=== PATIENT | female | born 1945 | race Caucasian/White ===

== ENCOUNTER 2017-03-24 21:00 | Inpatient (IN) | payer MEDICARE, MEDICAID ==
[~2017-03-24 21:00] MED LIST: ALPR.25 PO; ATOR40TA49 PO; ISOS30 PO; METO25 PO
[2017-03-24 21:15] VITALS: RESP 18; O2SAT 99
[2017-03-24] MEDS ORDERED: SODIUM CHLORIDE 0.9% FLUSH 10 ML FLUSH IVF PRN (21:15)
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
[2017-03-24 21:42] LABS: AUTOMATED NEUTROPHIL # 7.3 TH/MM3 (1.8-7.7); BASOPHIL # 0.1 TH/MM3 (0-0.2); BASOPHIL % 0.9 % (0.0-2.0); EOSINOPHIL # 0.2 TH/MM3 (0-0.4); EOSINOPHIL % 1.9 % (0.0-4.0); HEMATOCRIT 30.4 % (35.0-46.0); LYMPH % 23.6 % (9.0-44.0); LYMPHOCYTE # 2.6 TH/MM3 (1.0-4.8); MEAN CELL VOLUME 72.8 FL (80.0-100.0); MEAN CORPUSCULAR HEMOGLOBIN 23.4 PG (27.0-34.0); MEAN CORPUSCULAR HGB CONC 32.2 % (32.0-36.0); MONO % 8.3 % (0.0-8.0); NEUT % 65.3 % (16.0-70.0); PLATELET COUNT 373 TH/MM3 (150-450); RED BLOOD COUNT 4.18 MIL/MM3 (4.00-5.30); RED CELL DISTRIBUTION WIDTH 18.1 % (11.6-17.2); WHITE BLOOD COUNT 11.2 TH/MM3 (4.0-11.0)
[2017-03-24 21:45] LABS: HEMO FLAGS AUTO DIFF
[2017-03-24 22:06] LABS: ANION GAP 11 MEQ/L (5-15); AST (GOT) 38 U/L (15-37); BICARBONATE 24.3 MEQ/L (21.0-32.0); BLOOD UREA NITROGEN 25 MG/DL (7-18); CHLORIDE 102 MEQ/L (98-107); GLOMERULAR FILTRATION RATE 51 ML/MIN (>89); POTASSIUM 3.8 MEQ/L (3.5-5.1); SODIUM (NA) 137 MEQ/L (136-145)
[2017-03-24 22:09] LABS: ALKALINE PHOSPHATASE 164 U/L (45-117); ALT (GPT) 30 U/L (10-53); TOTAL BILIRUBIN ADULT 0.2 MG/DL (0.2-1.0)
[2017-03-24 22:35] LABS: SCAN/DIFF AUTO DIFF CONFIRMED
[2017-03-24 23:01] LABS: AMPHETAMINE, URINE NEG (NEG); BARBITURATES, URINE NEG (NEG); COCAINE, URINE NEG (NEG)
[2017-03-24 23:15] LABS: BACTERIA, URINE RARE /hpf; BLOOD, URINE NEG (NEG); GLUCOSE,URINE NEG (NEG); KETONE, URINE NEG (NEG); NITRITE,URINE NEG (NEG); SQUAMOUS EPITHELIAL CELL URINE <1 /hpf (0-5); URINE COLOR LIGHT-YELLOW (YELLW/STRAW)
[2017-03-24 23:16] LABS: COMMENT (UR) CULT NOT INDICATED; CULTURE IF INDICATED CULT NOT INDICATED
[2017-03-24] MEDS ORDERED: LANTUS2P SQ (23:16)
[2017-03-24] MEDS ORDERED: ISOS10TA3 PO (23:16)
[2017-03-24] MEDS ORDERED: ATOR1TAB18 PO (23:16)
[2017-03-24] MEDS ORDERED: VITA100018 PO (23:16)
[2017-03-24] MEDS ORDERED: LIDO5DIS35 TOPICAL (23:16)
[2017-03-24] MEDS ORDERED: CYCL1TAB29 PO (23:26)
[2017-03-24] MEDS ORDERED: CLON0.1T PO (23:26)
[2017-03-24] MEDS ORDERED: SERO50TA PO (23:26)
[2017-03-24] MEDS ORDERED: TRAM50TA PO (23:26)
[2017-03-24] MEDS ORDERED: MAPA325T PO (23:26)
[2017-03-24] MEDS ORDERED: HUMALOG SQ (23:26)
[2017-03-24] MEDS ORDERED: IBUP800T23 PO (23:26)
[2017-03-24] MEDS ORDERED: NITR1SUB3 SL (23:26)
[2017-03-24] MEDS ORDERED: PANT40TA3 PO (23:26)
[2017-03-24] MEDS ORDERED: ZOLO25TA PO (23:26)
--- NOTE | 2017-03-25 00:12 | RADRPT ---
EXAM DATE/TIME: 03/24/2017 23:59 [facility] COMPARISON: CT BRAIN W/O CONTRAST, May 10, 2016, 17:36. INDICATIONS : Altered mental status. RADIATION DOSE: 33.81 CTDIvol (mGy) MEDICAL HISTORY : Dementia. Chronic obstructive pulmonary disease. Hypertension. SURGICAL HISTORY : None. ENCOUNTER: Initial ACUITY: 1 day PAIN SCALE: 0/10 LOCATION: cranial TECHNIQUE: Multiple contiguous axial images were obtained of the head. Using automated exposure control and adj ustment of the mA and/or kV according to patient size, radiation dose was kept as low as reasonably a chievable to obtain optimal diagnostic quality images. FINDINGS: CEREBRUM: The ventricles are normal for age. No evidence of midline shift, mass lesion, hemorrhage or acute in farction. No extra-axial fluid collections are seen. POSTERIOR FOSSA: The cerebellum and brainstem are intact. The 4th ventricle is midline. The cerebellopontine angle i s unremarkable. EXTRACRANIAL: The visualized portion of the orbits is intact. SKULL: The calvaria is intact. No evidence of skull fracture. CONCLUSION: No acute disease. Juan M Lundy Jr., MD on March 25, 2017 at 0:09 Board Certified Radiologist. This report was verified electronically.
--- NOTE | 2017-03-25 00:52 | PD ---
Physical Exam Narrative Patient was seen by my store administrative assistant and signed out to me. Data Data Last Documented VS Vital Signs Date Time Temp Pulse Resp B/P Pulse Ox O2 Delivery O2 Flow Rate FiO2 03/24/17 21:15 18 99 Room Air Orders Complete Blood Count With Diff (03/24/17 21:13) Comprehensive Metabolic Panel (03/24/17 21:13) Urinalysis - C+S If Indicated (03/24/17 21:13) Oximetry (03/24/17 21:13) Iv Access Insert/Monitor (03/24/17 21:13) Ecg Monitoring (03/24/17 21:13) Psych Screen (03/24/17 21:13) Sodium Chloride 0.9% Flush (Ns Flush) (03/24/17 21:15) Drug Screen, Random Urine (03/24/17 21:13) Ct Brain W/O Iv Contrast(Rout) (03/24/17 ) Cath For Specimen (03/24/17 22:31) Labs Laboratory Tests Test 03/24/17 03/24/17 21:10 22:30 White Blood Count 11.2 TH/MM3 Red Blood Count 4.18 MIL/MM3 Hemoglobin 9.8 GM/DL Hematocrit 30.4 % Mean Corpuscular Volume 72.8 FL Mean Corpuscular Hemoglobin 23.4 PG Mean Corpuscular Hemoglobin 32.2 % Concent Red Cell Distribution Width 18.1 % Platelet Count 373 TH/MM3 Mean Platelet Volume 8.3 FL Neutrophils (%) (Auto) 65.3 % Lymphocytes (%) (Auto) 23.6 % Monocytes (%) (Auto) 8.3 % Eosinophils (%) (Auto) 1.9 % Basophils (%) (Auto) 0.9 % Neutrophils # (Auto) 7.3 TH/MM3 Lymphocytes # (Auto) 2.6 TH/MM3 Monocytes # (Auto) 0.9 TH/MM3 Eosinophils # (Auto) 0.2 TH/MM3 Basophils # (Auto) 0.1 TH/MM3 CBC Comment AUTO DIFF Differential Comment AUTO DIFF CONFIRMED Sodium Level 137 MEQ/L Potassium Level 3.8 MEQ/L Chloride Level 102 MEQ/L Carbon Dioxide Level 24.3 MEQ/L Anion Gap 11 MEQ/L Blood Urea Nitrogen 25 MG/DL Creatinine 1.07 MG/DL Estimat Glomerular Filtration 51 ML/MIN Rate Random Glucose 169 MG/DL Calcium Level 8.7 MG/DL Total Bilirubin 0.2 MG/DL Aspartate Amino Transf 38 U/L (AST/SGOT) Alanine Aminotransferase 30 U/L (ALT/SGPT) Alkaline Phosphatase 164 U/L Total Protein 9.3 GM/DL Albumin 3.4 GM/DL Urine Color LIGHT-YELLOW Urine Turbidity CLEAR Urine pH 6.0 Urine Specific [place] 1.012 Urine Protein 100 mg/dL Urine Glucose (UA) NEG mg/dL Urine Ketones NEG mg/dL Urine Occult Blood NEG Urine Nitrite NEG Urine Bilirubin NEG Urine Urobilinogen LESS THAN 2.0 MG/DL Urine Leukocyte Esterase NEG Urine RBC 1 /hpf Urine WBC 1 /hpf Urine Squamous Epithelial <1 /hpf Cells Urine Amorphous Sediment RARE Urine Bacteria RARE /hpf Microscopic Urinalysis Comment CULT NOT INDICATED Urine Opiates Screen NEG Urine Barbiturates Screen NEG Urine Amphetamines Screen NEG Urine Benzodiazepines Screen NEG Urine Cocaine Screen NEG Urine Cannabinoids Screen NEG MDM Medical Record Reviewed: Yes Supervised Visit with MICHELINE: Yes Interpretation(s) Last Impressions Head CT 03/24/17 0000 Signed Impressions: Service Date/Time: Friday, March 24, 2017 23:59 - CONCLUSION: No acute disease. Juan M Lundy Jr., MD 12:47 AM. CBC WBC 11.2. Hemoglobin 9.8 hematocrit 30.4. BUN 25. Creatinine 1.07. GFR 51. Alkaline phosphatase 164. Urine drug screen negative. UA is negative. Narrative Course 12:51 AM. Patient is medically cleared for psychiatric evaluation and disposition. Yahir Blue MD March 25, 2017 00:52
[2017-03-25 01:00] VITALS: BP 141/66; PULSE 75; RESP 16; O2SAT 100
[2017-03-25 08:00] VITALS: BP 142/76; PULSE 76; RESP 16; O2SAT 97
[2017-03-25 13:10] VITALS: BP 162/90; PULSE 92; RESP 18; O2SAT 97
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
[2017-03-25 16:04] VITALS: BP 190/88; PULSE 88; RESP 16; TEMP 98.6; O2SAT 98
[2017-03-25] MEDS ORDERED: diphenhydrAMINE HCL 50 MG/ML VIAL ONE (17:06)
[2017-03-25] MEDS ORDERED: ZIPRASIDONE MESYLATE 20 MG VIAL IM ONE ×2 (17:06→17:30)
[2017-03-25] MEDS ORDERED: LORazepam 1 MG TAB PO PRN (17:15)
[2017-03-25] MEDS ORDERED: ALUMINUM/MAGNESIUM/SIMETH 30 ML CUP PO PRN (17:15)
[2017-03-25] MEDS ORDERED: MAGNESIUM HYDROXIDE SUSP 30 ML CUP PO PRN (17:15)
[2017-03-25] MEDS ORDERED: LORazepam 2 MG/ML VIAL IM PRN (17:15)
[2017-03-25] MEDS ORDERED: diphenhydrAMINE HCL 50 MG/ML VIAL IM ONE (17:30)
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
[2017-03-25] MEDS ORDERED: ACETAMINOPHEN 500 MG CPLT PO ONE (18:00)
[2017-03-25 18:13] VITALS: BP 129/67; PULSE 101
--- NOTE | 2017-03-25 18:35 | RADRPT ---
EXAM DATE/TIME: 03/25/2017 18:21 [facility] COMPARISON: No previous studies available for comparison. INDICATIONS : Right arm pain, fall today. MEDICAL HISTORY : None. SURGICAL HISTORY : None. ENCOUNTER: Initial ACUITY: 1 day PAIN SCORE: 2/10 LOCATION: Right arm. FINDINGS: Two view examination of the right humerus demonstrates no evidence of fracture or dislocation. Bony mineralization is normal. The soft tissue structures are intact. CONCLUSION: Unremarkable examination of the right humerus. Mayito Parsons MD on March 25, 2017 at 18:33 Board Certified Radiologist. This report was verified electronically.
--- NOTE | 2017-03-25 18:38 | RADRPT ---
EXAM DATE/TIME: 03/25/2017 18:21 [place] COMPARISON: No previous studies available for comparison. INDICATIONS : Right hip pain, fall today. MEDICAL HISTORY : None. SURGICAL HISTORY : None. ENCOUNTER: Initial ACUITY: 1 day PAIN SCORE: 2/10 LOCATION: Right hip. FINDINGS: There is no evidence of fracture or dislocation. There is mild joint space narrowing in subchondral s clerosis. Phleboliths present in the adjacent pelvis. CONCLUSION: No acute bony findings Mayito Parsons MD on March 25, 2017 at 18:35 Board Certified Radiologist. This report was verified electronically.
[2017-03-25 22:16] VITALS: BP 152/70; PULSE 85; RESP 20; TEMP 97; O2SAT 97
[2017-03-25] MEDS: LORazepam 0.5 MG TAB PO PRN (22:17)
[2017-03-25] MEDS: traZODone HCL 50 MG TAB PO PRN (22:17)
[2017-03-26] MEDS: ACETAMINOPHEN 325 MG TAB PO PRN ×2 (04:11→21:06)
[2017-03-26 05:33] VITALS: BP 140/68; PULSE 88; RESP 18; TEMP 97.8
[2017-03-26 06:00] VITALS: BP 140/68; PULSE 88; RESP 18; TEMP 97.8; O2SAT 98
[2017-03-26] MEDS: LORazepam 0.5 MG TAB PO PRN ×3 (08:10→21:05)
[2017-03-26] MEDS: NICOTINE 21 MG/24 HR PATCH T-DERMAL SCH (09:00)
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
[2017-03-26] MEDS ORDERED: PILL SPLITTER OTHER PRN (14:15)
[2017-03-26] MEDS ORDERED: GLUCAGON 1 MG/ML VIAL OTHER PRN (14:15)
[2017-03-26] MEDS ORDERED: DEXTROSE 50% IN WATER 50 ML VIAL(D50) IV PUSH PRN (14:15)
[2017-03-26] MEDS ORDERED: MAGNESIUM HYDROXIDE SUSP 30 ML CUP PO PRN (15:00)
[2017-03-26] MEDS ORDERED: ALUMINUM/MAGNESIUM/SIMETH 30 ML CUP PO PRN (15:00)
[2017-03-26] MEDS: INSULIN ASPART SUPPLEMENTAL SCALE SQ SCH ×2 (16:00→21:00)
[2017-03-26] MEDS: INSULIN DETEMIR 100 UNITS/ML VIAL SQ SCH (21:00)
[2017-03-26] MEDS: ATORVASTATIN 80 MG TAB PO SCH (21:05)
[2017-03-26] MEDS: PANTOPRAZOLE SOD 40 MG DELAYED RELEASE TAB PO SCH (21:06)
[2017-03-26] MEDS: traZODone HCL 50 MG TAB PO PRN (23:57)
[2017-03-27] MEDS: INSULIN ASPART SUPPLEMENTAL SCALE SQ SCH ×4 (06:08→21:00)
[2017-03-27 06:39] VITALS: BP 156/74; PULSE 80; RESP 17; TEMP 98; O2SAT 99
[2017-03-27] MEDS: NICOTINE 21 MG/24 HR PATCH T-DERMAL SCH (09:00)
[2017-03-27] MEDS: CHOLECALCIFEROL (VIT D3) 1000 UNIT TAB PO SCH (09:51)
[2017-03-27] MEDS: ISOSORBIDE MONONITRATE 20 MG TAB PO SCH (09:51)
[2017-03-27 10:57] LABS: ALT (GPT) 28 U/L (10-53); ANION GAP 11 MEQ/L (5-15); AST (GOT) 35 U/L (15-37); BICARBONATE 26.4 MEQ/L (21.0-32.0); BLOOD UREA NITROGEN 34 MG/DL (7-18); CHLORIDE 101 MEQ/L (98-107); GLOMERULAR FILTRATION RATE 53 ML/MIN (>89); POTASSIUM 3.5 MEQ/L (3.5-5.1); SODIUM (NA) 138 MEQ/L (136-145)
[2017-03-27 11:06] LABS: ALKALINE PHOSPHATASE 154 U/L (45-117); HDL CHOLESTEROL 37.8 MG/DL (40.0-60.0); LDL CHOLESTEROL 129 MG/DL (0-99); TOTAL BILIRUBIN ADULT 0.4 MG/DL (0.2-1.0)
[2017-03-27 11:11] LABS: AUTOMATED NEUTROPHIL # 11.2 TH/MM3 (1.8-7.7); BASOPHIL # 0.1 TH/MM3 (0-0.2); BASOPHIL % 0.5 % (0.0-2.0); EOSINOPHIL # 0.2 TH/MM3 (0-0.4); EOSINOPHIL % 1.2 % (0.0-4.0); HEMATOCRIT 33.5 % (35.0-46.0); LYMPH % 14.4 % (9.0-44.0); LYMPHOCYTE # 2.1 TH/MM3 (1.0-4.8); MEAN CELL VOLUME 73.4 FL (80.0-100.0); MEAN CORPUSCULAR HEMOGLOBIN 22.9 PG (27.0-34.0); MEAN CORPUSCULAR HGB CONC 31.2 % (32.0-36.0); NEUT % 76.9 % (16.0-70.0); PLATELET COUNT 371 TH/MM3 (150-450); RED BLOOD COUNT 4.56 MIL/MM3 (4.00-5.30); RED CELL DISTRIBUTION WIDTH 17.8 % (11.6-17.2); WHITE BLOOD COUNT 14.6 TH/MM3 (4.0-11.0)
[2017-03-27 11:12] LABS: HEMO FLAGS AUTO DIFF
[2017-03-27 12:13] LABS: SCAN/DIFF AUTO DIFF CONFIRMED
--- NOTE | 2017-03-27 12:34 | HHI.PYPN ---
Subjective Remarks Patient seen in day room with nurse Birdie patient is markedly confused and disoriented though continues also quite suspicious vigilant and angry though her affect is somewhat softer today than yesterday, compliant medications. Review of Systems Except as stated in HPI: all other systems reviewed are Neg Objective Alert: Yes [place]: Person (vague) Mood: Angry, Oppositional Affect: Labile, Restricted Memory Intact: Comment (poor) Hallucinations: Other (denies) Delusions: Yes Delusion Type: Paranoid Suicidal: Ideation (denies) Homicidal: Ideation (denies) Insight/Judgment Poor Labs Test 03/27/17 03/27/17 09:40 09:46 Sodium Level 138 MEQ/L Potassium Level 3.5 MEQ/L Chloride Level 101 MEQ/L Carbon Dioxide Level 26.4 MEQ/L Anion Gap 11 MEQ/L Blood Urea Nitrogen 34 MG/DL Creatinine 1.03 MG/DL Estimat Glomerular Filtration 53 ML/MIN Rate Random Glucose 120 MG/DL Calcium Level 9.2 MG/DL Total Bilirubin 0.4 MG/DL Aspartate Amino Transf 35 U/L (AST/SGOT) Alanine Aminotransferase 28 U/L (ALT/SGPT) Alkaline Phosphatase 154 U/L Total Protein 9.1 GM/DL Albumin 3.5 GM/DL Triglycerides Level 169 MG/DL Cholesterol Level 201 MG/DL LDL Cholesterol 129 MG/DL HDL Cholesterol 37.8 MG/DL Cholesterol/HDL Ratio 5.31 RATIO Thyroid Stimulating Hormone 1.510 uIU/ML 3rd Gen White Blood Count 14.6 TH/MM3 Red Blood Count 4.56 MIL/MM3 Hemoglobin 10.4 GM/DL Hematocrit 33.5 % Mean Corpuscular Volume 73.4 FL Mean Corpuscular Hemoglobin 22.9 PG Mean Corpuscular Hemoglobin 31.2 % Concent Red Cell Distribution Width 17.8 % Platelet Count 371 TH/MM3 Mean Platelet Volume 8.2 FL Neutrophils (%) (Auto) 76.9 % Lymphocytes (%) (Auto) 14.4 % Monocytes (%) (Auto) 7.0 % Eosinophils (%) (Auto) 1.2 % Basophils (%) (Auto) 0.5 % Neutrophils # (Auto) 11.2 TH/MM3 Lymphocytes # (Auto) 2.1 TH/MM3 Monocytes # (Auto) 1.0 TH/MM3 Eosinophils # (Auto) 0.2 TH/MM3 Basophils # (Auto) 0.1 TH/MM3 CBC Comment AUTO DIFF Differential Comment AUTO DIFF CONFIRMED Vitals/IOs Vital Signs Date Time Temp Pulse Resp B/P Pulse Ox O2 Delivery O2 Flow Rate FiO2 03/27/17 06:39 98.0 80 17 156/74 99 03/25/17 13:10 Room Air Intake and Output 03/26/17 03/26/17 03/26/17 07:59 15:59 23:59 Intake Total 240 ml 1203 ml 240 ml Balance 240 ml 1203 ml 240 ml Assessment & Plan Problem List: (1) Dementia associated with other underlying disease with behavioral disturbance ICD Code: F02.81 Assessment & Plan Estimated LOS: days patient continues markedly demented irritable and vigilant , compliant medications Justification for Cont. Inpt. At this time patient will decompensate if placed in a lower level of care Discharge Planning To be determined Mayito Mendez MD March 27, 2017 12:34
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
[2017-03-27 14:18] LABS: HEMOGLOBIN A1a 1.2 %; HEMOGLOBIN A1b 1.9 %; HEMOGLOBIN Ao 82.6 %; HEMOGLOBIN LA1C 2.2 %; HEMOGLOBIN P3 5.9 %
[2017-03-27] MEDS: LORazepam 0.5 MG TAB PO PRN ×2 (17:16→21:33)
[2017-03-27 18:20] VITALS: BP 116/69; PULSE 101; RESP 18; TEMP 97.4
[2017-03-27] MEDS: INSULIN DETEMIR 100 UNITS/ML VIAL SQ SCH (21:30)
[2017-03-27] MEDS: ATORVASTATIN 80 MG TAB PO SCH (21:33)
[2017-03-27] MEDS: CYCLOBENZAPRINE HCL 10 MG TAB PO PRN (21:33)
[2017-03-27] MEDS: traZODone HCL 50 MG TAB PO PRN (21:33)
[2017-03-27] MEDS: PANTOPRAZOLE SOD 40 MG DELAYED RELEASE TAB PO SCH (21:33)
[2017-03-27] MEDS: ACETAMINOPHEN 325 MG TAB PO PRN (21:34)
[2017-03-28] MEDS: INSULIN ASPART SUPPLEMENTAL SCALE SQ SCH ×4 (06:31→21:00)
[2017-03-28 06:41] VITALS: BP 146/64; PULSE 76; RESP 16; TEMP 98.6; O2SAT 97
[2017-03-28] MEDS: CHOLECALCIFEROL (VIT D3) 1000 UNIT TAB PO SCH (08:57)
[2017-03-28] MEDS: NICOTINE 21 MG/24 HR PATCH T-DERMAL SCH (08:58)
[2017-03-28] MEDS: ISOSORBIDE MONONITRATE 20 MG TAB PO SCH (08:58)
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
[2017-03-28] MEDS: LORazepam 2 MG/ML VIAL IM PRN (10:30)
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
[2017-03-28] MEDS: LORazepam 0.5 MG TAB PO PRN (16:00)
[2017-03-28] MEDS: CYCLOBENZAPRINE HCL 10 MG TAB PO PRN (16:00)
--- NOTE | 2017-03-28 16:58 | RADRPT ---
EXAM DATE/TIME: 03/28/2017 16:06 [facility] COMPARISON: CHEST SINGLE AP, July 20, 2016, 20:31. INDICATIONS : Cough. Congestion. MEDICAL HISTORY : None. SURGICAL HISTORY : None. ENCOUNTER: Initial ACUITY: 3 days PAIN SCORE: Non-responsive. LOCATION: Bilateral chest FINDINGS: Fibrotic scarring is noted within the left lung base. The heart is stable. The pulmonary vascular p attern is normal. The lungs are otherwise clear. Degenerative changes and scoliosis of the thoracol umbar spine are noted. CONCLUSION: 1. Left basilar fibrotic scarring. 2. No acute focal pulmonary infiltrate or pulmonary vascular congestion. 3. Degenerative changes and scoliosis of the thoracolumbar spine. Paulo Hartley MD on March 28, 2017 at 16:54 Board Certified Radiologist. This report was verified electronically.
[2017-03-28] MEDS ORDERED: OLANZapine IM 10 MG VIAL IM ONE ×2 (17:14→17:30)
[2017-03-28] MEDS: ARIPiprazole 2 MG TAB PO SCH (21:00)
[2017-03-28] MEDS: PANTOPRAZOLE SOD 40 MG DELAYED RELEASE TAB PO SCH (22:42)
[2017-03-28] MEDS: ATORVASTATIN 80 MG TAB PO SCH (22:42)
[2017-03-28] MEDS: INSULIN DETEMIR 100 UNITS/ML VIAL SQ SCH (22:43)
[2017-03-29] MEDS: LORazepam 0.5 MG TAB PO PRN (01:24)
[2017-03-29 05:43] VITALS: BP 161/93; PULSE 95; RESP 17; TEMP 98.1; O2SAT 93
[2017-03-29] MEDS: INSULIN ASPART SUPPLEMENTAL SCALE SQ SCH ×4 (06:06→21:00)
[2017-03-29] MEDS: ARIPiprazole 2 MG TAB PO SCH ×2 (08:47→21:00)
[2017-03-29] MEDS: CHOLECALCIFEROL (VIT D3) 1000 UNIT TAB PO SCH (08:47)
[2017-03-29] MEDS: ISOSORBIDE MONONITRATE 20 MG TAB PO SCH (08:47)
[2017-03-29] MEDS: NICOTINE 21 MG/24 HR PATCH T-DERMAL SCH (08:50)
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
[2017-03-29] MEDS: LORazepam 2 MG/ML VIAL IM PRN (17:00)
[2017-03-29 20:25] VITALS: BP 177/79; PULSE 101; RESP 18; TEMP 99.3; O2SAT 94
[2017-03-29] MEDS: ATORVASTATIN 80 MG TAB PO SCH (21:11)
[2017-03-29] MEDS: PANTOPRAZOLE SOD 40 MG DELAYED RELEASE TAB PO SCH (21:11)
[2017-03-29] MEDS: INSULIN DETEMIR 100 UNITS/ML VIAL SQ SCH (21:13)
[2017-03-30] MEDS: LORazepam 0.5 MG TAB PO PRN (01:10)
[2017-03-30] MEDS: CYCLOBENZAPRINE HCL 10 MG TAB PO PRN ×2 (01:10→12:46)
[2017-03-30 05:30] VITALS: BP 175/82; PULSE 92; RESP 18; TEMP 97.6
[2017-03-30] MEDS: INSULIN ASPART SUPPLEMENTAL SCALE SQ SCH ×4 (06:17→20:57)
[2017-03-30 08:00] LABS: AUTOMATED NEUTROPHIL # 6.8 TH/MM3 (1.8-7.7); BASOPHIL % 0.4 % (0.0-2.0); EOSINOPHIL # 0.2 TH/MM3 (0-0.4); LYMPH % 21.3 % (9.0-44.0); LYMPHOCYTE # 2.1 TH/MM3 (1.0-4.8); MEAN CELL VOLUME 73.4 FL (80.0-100.0); MEAN CORPUSCULAR HEMOGLOBIN 23.3 PG (27.0-34.0); MEAN CORPUSCULAR HGB CONC 31.7 % (32.0-36.0); MONO % 8.9 % (0.0-8.0); NEUT % 67.4 % (16.0-70.0); PLATELET COUNT 330 TH/MM3 (150-450); RED BLOOD COUNT 4.36 MIL/MM3 (4.00-5.30); RED CELL DISTRIBUTION WIDTH 17.3 % (11.6-17.2)
[2017-03-30 08:01] LABS: HEMO FLAGS AUTO DIFF
[2017-03-30 08:28] LABS: BICARBONATE 25.3 MEQ/L (21.0-32.0); POTASSIUM 3.3 MEQ/L (3.5-5.1)
[2017-03-30 08:39] LABS: SCAN/DIFF AUTO DIFF CONFIRMED
[2017-03-30] MEDS: CHOLECALCIFEROL (VIT D3) 1000 UNIT TAB PO SCH (08:53)
[2017-03-30] MEDS: ISOSORBIDE MONONITRATE 20 MG TAB PO SCH (08:53)
[2017-03-30] MEDS: ARIPiprazole 2 MG TAB PO SCH (08:53)
[2017-03-30] MEDS: NICOTINE 21 MG/24 HR PATCH T-DERMAL SCH (09:00)
[2017-03-30] MEDS ORDERED: POTASSIUM CHLORIDE 10 MEQ CONTROLLED RELEASE TAB PO ONE (12:00)
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
[2017-03-30 14:46] LABS: TRANSFERRIN IRON PROFILE 305 MG/DL (200-360)
[2017-03-30 14:49] LABS: FERRITIN 41 NG/ML (8-252)
[2017-03-30] MEDS: FERROUS SULFATE 325 MG (65 MG ELEMENTAL IRON) TAB PO SCH (15:45)
--- NOTE | 2017-03-30 16:37 | HHI.PYPN ---
Subjective Remarks Patient seen in day room in [place] chair patient somewhat sedated though staff notes are to be continued irritable intrusive and "nasty" will increase Abilify to 5 mg twice a day Review of Systems Except as stated in HPI: all other systems reviewed are Neg Objective Alert: Yes [place]: Person Mood: Angry Affect: Restricted Memory Intact: Comment (impaired) Hallucinations: Other (no AVH) Delusions: Yes Delusion Type: Paranoid Suicidal: Ideation (no SI) Homicidal: Ideation (no HI) Insight/Judgment Very poor Labs Test 03/30/17 07:15 White Blood Count 10.0 TH/MM3 Red Blood Count 4.36 MIL/MM3 Hemoglobin 10.1 GM/DL Hematocrit 32.0 % Mean Corpuscular Volume 73.4 FL Mean Corpuscular Hemoglobin 23.3 PG Mean Corpuscular Hemoglobin 31.7 % Concent Red Cell Distribution Width 17.3 % Platelet Count 330 TH/MM3 Mean Platelet Volume 7.9 FL Neutrophils (%) (Auto) 67.4 % Lymphocytes (%) (Auto) 21.3 % Monocytes (%) (Auto) 8.9 % Eosinophils (%) (Auto) 2.0 % Basophils (%) (Auto) 0.4 % Neutrophils # (Auto) 6.8 TH/MM3 Lymphocytes # (Auto) 2.1 TH/MM3 Monocytes # (Auto) 0.9 TH/MM3 Eosinophils # (Auto) 0.2 TH/MM3 Basophils # (Auto) 0.0 TH/MM3 CBC Comment AUTO DIFF Differential Comment AUTO DIFF CONFIRMED Sodium Level 139 MEQ/L Potassium Level 3.3 MEQ/L Chloride Level 105 MEQ/L Carbon Dioxide Level 25.3 MEQ/L Anion Gap 9 MEQ/L Blood Urea Nitrogen 21 MG/DL Creatinine 0.84 MG/DL Estimat Glomerular Filtration 67 ML/MIN Rate Random Glucose 106 MG/DL Calcium Level 9.2 MG/DL Iron Level 42 MCG/DL Total Iron Binding Capacity 427 MCG/DL Percent Iron Saturation 9.8 % Ferritin 41 NG/ML 25-Hydroxy Vitamin D Total 23.4 ng/ML Vitals/IOs Vital Signs Date Time Temp Pulse Resp B/P Pulse Ox O2 Delivery O2 Flow Rate FiO2 03/30/17 05:30 97.6 92 18 175/82 03/29/17 20:25 94 Intake and Output 03/29/17 03/29/17 03/29/17 07:59 15:59 23:59 Intake Total 1 ml 420 ml 360 ml Balance 1 ml 420 ml 360 ml Assessment & Plan Problem List: (1) Dementia associated with other underlying disease with behavioral disturbance ICD Code: F02.81 Assessment & Plan Estimated LOS: days patient continues to mentate irritable and intrusive. See medication adjustment above Justification for Cont. Inpt. At this time patient will decompensate then placed in a lower level of care Discharge Planning To be determined Request HC Surrog/Guard Advoc?: Yes Mayito Mendez MD March 30, 2017 16:37
[2017-03-30 19:39] VITALS: BP 138/81; PULSE 106; RESP 20; TEMP 97.3; O2SAT 96
[2017-03-30] MEDS: ARIPiprazole 5 MG TAB PO SCH ×2 (20:52→21:00)
[2017-03-30] MEDS: traZODone HCL 50 MG TAB PO PRN (20:52)
[2017-03-30] MEDS: ATORVASTATIN 80 MG TAB PO SCH ×2 (20:52→21:00)
[2017-03-30] MEDS: PANTOPRAZOLE SOD 40 MG DELAYED RELEASE TAB PO SCH ×2 (20:52→21:00)
[2017-03-30] MEDS: INSULIN DETEMIR 100 UNITS/ML VIAL SQ SCH (20:55)
[2017-03-31 05:13] VITALS: BP 177/79; PULSE 102; RESP 17; TEMP 98.7; O2SAT 97
[2017-03-31] MEDS: INSULIN ASPART SUPPLEMENTAL SCALE SQ SCH ×4 (06:21→21:47)
[2017-03-31] MEDS: cloNIDine HCL 0.1 MG TAB PO PRN (06:50)
[2017-03-31] MEDS: FERROUS SULFATE 325 MG (65 MG ELEMENTAL IRON) TAB PO SCH ×2 (09:00→09:08)
[2017-03-31] MEDS: ISOSORBIDE MONONITRATE 20 MG TAB PO SCH ×2 (09:00→09:08)
[2017-03-31] MEDS: NICOTINE 21 MG/24 HR PATCH T-DERMAL SCH (09:00)
[2017-03-31] MEDS: CHOLECALCIFEROL (VIT D3) 1000 UNIT TAB PO SCH ×2 (09:00→09:08)
[2017-03-31] MEDS: LISINOPRIL 10 MG TAB PO SCH ×2 (09:00→09:08)
[2017-03-31] MEDS: ARIPiprazole 5 MG TAB PO SCH ×3 (09:00→21:49)
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
[2017-03-31 15:58] VITALS: BP 140/76; PULSE 108; RESP 16; TEMP 97.9; O2SAT 99
[2017-03-31 19:36] VITALS: BP 140/76; PULSE 108; RESP 16; TEMP 97.9; O2SAT 99
[2017-03-31 19:59] VITALS: BP 154/84; PULSE 105; RESP 20; TEMP 98.5; O2SAT 96
[2017-03-31] MEDS ORDERED: HALOPERIDOL LACTATE 5 MG/ML AMP IM PRN (21:00)
[2017-03-31] MEDS: INSULIN DETEMIR 100 UNITS/ML VIAL SQ SCH (21:48)
[2017-03-31] MEDS: HALOPERIDOL LACTATE ORAL CONC 10 MG/5 ML CUP PO SCH (21:49)
[2017-03-31] MEDS: ATORVASTATIN 80 MG TAB PO SCH (21:49)
[2017-03-31] MEDS: PANTOPRAZOLE SOD 40 MG DELAYED RELEASE TAB PO SCH (21:49)
[2017-03-31] MEDS: ACETAMINOPHEN 325 MG TAB PO PRN (21:50)
[2017-03-31 22:46] VITALS: BP 129/63; PULSE 84; RESP 18; TEMP 97.9; O2SAT 95
[2017-04-01 03:00] VITALS: BP 119/59; PULSE 80; RESP 18; TEMP 96.8; O2SAT 98
[2017-04-01 05:39] VITALS: BP 112/61; PULSE 76; RESP 18; TEMP 97.7; O2SAT 96
[2017-04-01] MEDS: INSULIN ASPART SUPPLEMENTAL SCALE SQ SCH ×4 (06:06→21:00)
[2017-04-01] MEDS: NICOTINE 21 MG/24 HR PATCH T-DERMAL SCH (09:00)
[2017-04-01] MEDS: LISINOPRIL 10 MG TAB PO SCH (09:00)
[2017-04-01] MEDS: HALOPERIDOL LACTATE ORAL CONC 10 MG/5 ML CUP PO SCH ×2 (09:00→20:42)
[2017-04-01] MEDS: ARIPiprazole 5 MG TAB PO SCH (09:00)
[2017-04-01] MEDS: FERROUS SULFATE 325 MG (65 MG ELEMENTAL IRON) TAB PO SCH (09:53)
[2017-04-01] MEDS: CHOLECALCIFEROL (VIT D3) 1000 UNIT TAB PO SCH (09:53)
[2017-04-01] MEDS: ISOSORBIDE MONONITRATE 20 MG TAB PO SCH (09:53)
--- NOTE | 2017-04-01 10:23 | HHI.PYPN ---
Subjective Remarks Patient seen in room with nurse Benita, patient continues angry irritable diffusely confused with no insight. Patient's overall compliant with new medication. Will discontinue Abilify at this time patient scheduled for [place] [facility] tomorrow Review of Systems Except as stated in HPI: all other systems reviewed are Neg Objective Alert: Yes [place]: Person Mood: Angry Affect: Restricted Memory Intact: Comment (impaired) Hallucinations: Other (no AVH) Delusions: Yes Delusion Type: Paranoid Suicidal: Ideation (no SI) Homicidal: Ideation (no HI) Insight/Judgment Very poor Vitals/IOs Vital Signs Date Time Temp Pulse Resp B/P Pulse Ox O2 Delivery O2 Flow Rate FiO2 04/01/17 05:39 97.7 76 18 112/61 96 Intake and Output 03/31/17 03/31/17 04/01/17 08:00 16:00 00:00 Intake Total 1470 ml Balance 1470 ml Assessment & Plan Problem List: (1) Dementia associated with other underlying disease with behavioral disturbance ICD Code: F02.81 Assessment & Plan Estimated LOS: days patient remains confused demented angry and irritable. Patient scheduled for [place] tomorrow Justification for Cont. Inpt. At this time patient will decompensate placed in a lower level of care Discharge Planning To be determined Request HC Surrog/Guard Advoc?: Yes Mayito Mendez MD April 01, 2017 10:23
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
[2017-04-01 16:00] VITALS: BP 90/55; PULSE 89; RESP 18; TEMP 96.5; O2SAT 97
[2017-04-01] MEDS: ATORVASTATIN 80 MG TAB PO SCH (20:41)
[2017-04-01] MEDS: PANTOPRAZOLE SOD 40 MG DELAYED RELEASE TAB PO SCH (20:42)
[2017-04-01] MEDS: INSULIN DETEMIR 100 UNITS/ML VIAL SQ SCH (21:00)
[2017-04-02 05:30] VITALS: BP 140/65; PULSE 78; RESP 18; TEMP 97.9
[2017-04-02] MEDS: INSULIN ASPART SUPPLEMENTAL SCALE SQ SCH ×5 (05:55→21:00)
[2017-04-02] MEDS: NICOTINE 21 MG/24 HR PATCH T-DERMAL SCH (09:00)
[2017-04-02] MEDS: HALOPERIDOL LACTATE ORAL CONC 10 MG/5 ML CUP PO SCH ×2 (09:12→20:41)
[2017-04-02] MEDS: LISINOPRIL 10 MG TAB PO SCH (09:15)
[2017-04-02] MEDS: FERROUS SULFATE 325 MG (65 MG ELEMENTAL IRON) TAB PO SCH (09:15)
[2017-04-02] MEDS: CHOLECALCIFEROL (VIT D3) 1000 UNIT TAB PO SCH (09:15)
[2017-04-02] MEDS: ISOSORBIDE MONONITRATE 20 MG TAB PO SCH (09:15)
--- NOTE | 2017-04-02 12:14 | HHI.PYPN ---
Subjective Remarks Patient seen in Mon court case continued by Tres Broderick. Chart reviewed. Patient continues markedly confused and demented, also with anger and paranoia irritability. Showing no insight. For now continue treatment Review of Systems Except as stated in HPI: all other systems reviewed are Neg Objective Alert: Yes [place]: Person Mood: Angry Affect: Restricted Memory Intact: Comment (impaired) Hallucinations: Other (no AVH) Delusions: Yes Delusion Type: Paranoid Suicidal: Ideation (no SI) Homicidal: Ideation (no HI) Insight/Judgment Poor Vitals/IOs Vital Signs Date Time Temp Pulse Resp B/P Pulse Ox O2 Delivery O2 Flow Rate FiO2 04/02/17 05:30 97.9 78 18 140/65 04/01/17 16:00 97 Intake and Output 04/01/17 04/01/17 04/02/17 08:00 16:00 00:00 Intake Total 360 ml Balance 360 ml Assessment & Plan Problem List: (1) Dementia associated with other underlying disease with behavioral disturbance ICD Code: F02.81 Assessment & Plan Estimated LOS: days patient continues demented confused somewhat paranoid and vigilant. Compliant medications. For now continue treatment Justification for Cont. Inpt. At this time patient will decompensate the placed in a lower level of care Discharge Planning To be determined Request HC Surrog/Guard Advoc?: Yes Mayito Mendez MD April 02, 2017 12:14
[2017-04-02] MEDS: CYCLOBENZAPRINE HCL 10 MG TAB PO PRN (14:50)
[2017-04-02 17:37] VITALS: BP 123/66; PULSE 91; RESP 18; TEMP 97.2; O2SAT 100
[2017-04-02] MEDS: PANTOPRAZOLE SOD 40 MG DELAYED RELEASE TAB PO SCH (21:00)
[2017-04-02] MEDS: INSULIN DETEMIR 100 UNITS/ML VIAL SQ SCH (21:00)
[2017-04-02] MEDS: ATORVASTATIN 80 MG TAB PO SCH (21:00)
[2017-04-03 05:42] VITALS: BP 151/69; PULSE 93; RESP 16; TEMP 97.6; O2SAT 98
[2017-04-03] MEDS: INSULIN ASPART SUPPLEMENTAL SCALE SQ SCH ×4 (06:36→21:00)
[2017-04-03] MEDS: FERROUS SULFATE 325 MG (65 MG ELEMENTAL IRON) TAB PO SCH (08:51)
[2017-04-03] MEDS: LISINOPRIL 10 MG TAB PO SCH (08:51)
[2017-04-03] MEDS: ISOSORBIDE MONONITRATE 20 MG TAB PO SCH (08:51)
[2017-04-03] MEDS: CHOLECALCIFEROL (VIT D3) 1000 UNIT TAB PO SCH (08:51)
[2017-04-03] MEDS: HALOPERIDOL LACTATE ORAL CONC 10 MG/5 ML CUP PO SCH ×2 (08:51→21:02)
[2017-04-03] MEDS: NICOTINE 21 MG/24 HR PATCH T-DERMAL SCH (09:00)
--- NOTE | 2017-04-03 10:18 | HHI.PYPN ---
Subjective Remarks Patient seen in [facility] with nurse Daniela, while patient continues confused and disoriented the level of arousal the paranoia vigilance and irritability are softer. Patient compliant with her medication. For now continue treatment Review of Systems Except as stated in HPI: all other systems reviewed are Neg Objective Alert: Yes [place]: Person Mood: Angry Affect: Restricted Memory Intact: Comment (impaired) Hallucinations: Other (no AVH) Delusions: Yes Delusion Type: Paranoid Suicidal: Ideation (no SI) Homicidal: Ideation (no HI) Insight/Judgment Very poor Vitals/IOs Vital Signs Date Time Temp Pulse Resp B/P Pulse Ox O2 Delivery O2 Flow Rate FiO2 04/03/17 05:42 97.6 93 16 151/69 98 Intake and Output 04/02/17 04/02/17 04/03/17 08:00 16:00 00:00 Intake Total 260 ml 860 ml Balance 260 ml 860 ml Assessment & Plan Problem List: (1) Dementia associated with other underlying disease with behavioral disturbance ICD Code: F02.81 Assessment & Plan Estimated LOS: days patient continues demented and confused not as irritable labile or paranoid. For now continue treatment Justification for Cont. Inpt. At this time patient will decompensate if placed in the lower level of care Discharge Planning To be determined Request HC Surrog/Guard Advoc?: Yes Mayito Mendez MD April 03, 2017 10:18
[2017-04-03 17:45] VITALS: BP 177/79; PULSE 99; RESP 18; TEMP 98.5; O2SAT 98
[2017-04-03] MEDS: INSULIN DETEMIR 100 UNITS/ML VIAL SQ SCH (21:00)
[2017-04-03] MEDS: PANTOPRAZOLE SOD 40 MG DELAYED RELEASE TAB PO SCH (21:02)
[2017-04-03] MEDS: ATORVASTATIN 80 MG TAB PO SCH (21:02)
[2017-04-04 05:24] VITALS: BP 136/63; PULSE 89; RESP 15; TEMP 97; O2SAT 97
[2017-04-04] MEDS: INSULIN ASPART SUPPLEMENTAL SCALE SQ SCH ×4 (06:02→21:00)
[2017-04-04] MEDS: NICOTINE 21 MG/24 HR PATCH T-DERMAL SCH (07:58)
[2017-04-04] MEDS: CHOLECALCIFEROL (VIT D3) 1000 UNIT TAB PO SCH (08:32)
[2017-04-04] MEDS: ISOSORBIDE MONONITRATE 20 MG TAB PO SCH (08:32)
[2017-04-04] MEDS: LISINOPRIL 10 MG TAB PO SCH (08:33)
[2017-04-04] MEDS: HALOPERIDOL LACTATE ORAL CONC 10 MG/5 ML CUP PO SCH ×2 (08:33→20:29)
[2017-04-04] MEDS: FERROUS SULFATE 325 MG (65 MG ELEMENTAL IRON) TAB PO SCH (08:44)
[2017-04-04] MEDS: LORazepam 0.5 MG TAB PO PRN (11:00)
--- NOTE | 2017-04-04 12:26 | HHI.PYPN ---
Subjective Remarks Patient was seen and case discussed with nursing. Per nursing patient was agitated this morning. When asked about it she said something personal with her family. He is alert and oriented 2. Pleasant for the interview. Continues with poor insight into admission. Objective Alert: Yes [place]: Person, Place Mood: Agitated Affect: Restricted Memory Intact: Comment (impaired) Hallucinations: Other (no AVH) Delusions: Yes Delusion Type: Paranoid Suicidal: Ideation (no SI) Homicidal: Ideation (no HI) Insight/Judgment Poor Vitals/IOs Vital Signs Date Time Temp Pulse Resp B/P Pulse Ox O2 Delivery O2 Flow Rate FiO2 04/04/17 05:24 97.0 89 15 136/63 97 Intake and Output 04/03/17 04/03/17 04/04/17 08:00 16:00 00:00 Intake Total 600 ml 960 ml 1320 ml Balance 600 ml 960 ml 1320 ml Assessment & Plan Problem List: (1) Dementia associated with other underlying disease with behavioral disturbance ICD Code: F02.81 Assessment & Plan Continue current treatment plan Justification for Cont. Inpt. Patient will decompensate in a less restrictive setting Request HC Surrog/Guard Advoc?: Yes Fabricio Roy DO April 04, 2017 12:26
[2017-04-04 18:00] VITALS: BP 145/69; PULSE 105; TEMP 99; O2SAT 99
[2017-04-04] MEDS: ATORVASTATIN 80 MG TAB PO SCH (20:30)
[2017-04-04] MEDS: PANTOPRAZOLE SOD 40 MG DELAYED RELEASE TAB PO SCH (20:30)
[2017-04-04] MEDS: INSULIN DETEMIR 100 UNITS/ML VIAL SQ SCH (21:00)
[2017-04-05 05:55] VITALS: BP 132/72; PULSE 86; RESP 16; TEMP 98.1; O2SAT 100
[2017-04-05] MEDS: INSULIN ASPART SUPPLEMENTAL SCALE SQ SCH ×4 (06:40→20:58)
[2017-04-05] MEDS: NICOTINE 21 MG/24 HR PATCH T-DERMAL SCH (09:00)
[2017-04-05] MEDS: FERROUS SULFATE 325 MG (65 MG ELEMENTAL IRON) TAB PO SCH (09:00)
[2017-04-05] MEDS: ISOSORBIDE MONONITRATE 20 MG TAB PO SCH (09:18)
[2017-04-05] MEDS: HALOPERIDOL LACTATE ORAL CONC 10 MG/5 ML CUP PO SCH ×2 (09:18→21:04)
[2017-04-05] MEDS: CHOLECALCIFEROL (VIT D3) 1000 UNIT TAB PO SCH (09:19)
[2017-04-05] MEDS: LISINOPRIL 10 MG TAB PO SCH (09:19)
--- NOTE | 2017-04-05 12:48 | HHI.PYPN ---
Subjective Remarks Patient was seen and case discussed with nursing. Patient ate breakfast and lunch. She is alert and oriented 2. She has not been irritable or had any outbursts today. Doing well per sitter. Largely keeps to herself because she says that she is tired. Denies auditory visual hallucinations area compliant with medications Objective Alert: Yes [place]: Person, Place Mood: Calm Affect: Blunted Memory Intact: Comment (impaired) Hallucinations: Other (no AVH) Delusions: Yes Delusion Type: Paranoid Suicidal: Ideation (no SI) Homicidal: Ideation (no HI) Insight/Judgment Poor Vitals/IOs Vital Signs Date Time Temp Pulse Resp B/P Pulse Ox O2 Delivery O2 Flow Rate FiO2 04/05/17 05:55 98.1 86 16 132/72 100 Intake and Output 04/04/17 04/04/17 04/05/17 08:00 16:00 00:00 Intake Total 240 ml 720 ml Balance 240 ml 720 ml Assessment & Plan Problem List: (1) Dementia associated with other underlying disease with behavioral disturbance ICD Code: F02.81 Assessment & Plan Continue current treatment plan Justification for Cont. Inpt. Patient will decompensate in a less restrictive setting Request HC Surrog/Guard Advoc?: Yes Fabricio Roy DO April 05, 2017 12:48
[2017-04-05] MEDS: LORazepam 0.5 MG TAB PO PRN (14:38)
[2017-04-05] MEDS: CYCLOBENZAPRINE HCL 10 MG TAB PO PRN (14:38)
[2017-04-05 20:05] VITALS: BP 133/72; PULSE 97; RESP 18; TEMP 98.5; O2SAT 98
[2017-04-05] MEDS: INSULIN DETEMIR 100 UNITS/ML VIAL SQ SCH (20:57)
[2017-04-05] MEDS: ATORVASTATIN 80 MG TAB PO SCH (21:00)
[2017-04-05] MEDS: PANTOPRAZOLE SOD 40 MG DELAYED RELEASE TAB PO SCH (21:00)
[2017-04-06] MEDS: INSULIN ASPART SUPPLEMENTAL SCALE SQ SCH ×4 (06:01→21:41)
[2017-04-06 06:37] VITALS: BP 132/75; PULSE 69; RESP 18; TEMP 98.2; O2SAT 98
[2017-04-06] MEDS: CHOLECALCIFEROL (VIT D3) 1000 UNIT TAB PO SCH (08:53)
[2017-04-06] MEDS: LISINOPRIL 10 MG TAB PO SCH (08:53)
[2017-04-06] MEDS: NICOTINE 21 MG/24 HR PATCH T-DERMAL SCH (08:54)
[2017-04-06] MEDS: FERROUS SULFATE 325 MG (65 MG ELEMENTAL IRON) TAB PO SCH (08:54)
[2017-04-06] MEDS: ISOSORBIDE MONONITRATE 20 MG TAB PO SCH (08:54)
[2017-04-06] MEDS: HALOPERIDOL LACTATE ORAL CONC 10 MG/5 ML CUP PO SCH ×2 (08:54→21:00)
--- NOTE | 2017-04-06 12:23 | HHI.PYPN ---
Subjective Remarks Patient seen in day room with nurse Tremayne, previous sitting calmly with sitter somewhat vigilant with me and suspicious though no behavioral problems responses were quite brief. Her patient also appears quite pale though most recent CBCs showed hemoglobin with acceptable value. Will repeat CBC in a.m. Patient compliant medication Review of Systems Except as stated in HPI: all other systems reviewed are Neg Objective Alert: Yes [place]: Person, Place Mood: Calm Affect: Blunted Memory Intact: Comment (impaired) Hallucinations: Other (no AVH) Delusions: Yes Delusion Type: Paranoid Suicidal: Ideation (no SI) Homicidal: Ideation (no HI) Insight/Judgment Very poor Vitals/IOs Vital Signs Date Time Temp Pulse Resp B/P Pulse Ox O2 Delivery O2 Flow Rate FiO2 04/06/17 06:37 98.2 69 18 132/75 98 Intake and Output 04/05/17 04/05/17 04/05/17 07:59 15:59 23:59 Intake Total 840 ml 720 ml Balance 840 ml 720 ml Assessment & Plan Problem List: (1) Dementia associated with other underlying disease with behavioral disturbance ICD Code: F02.81 Assessment & Plan Estimated LOS: days patient continues demented and irritable, compliant medications. Patient appears quite pale at this time will recheck CBC in a.m. Justification for Cont. Inpt. At this time patient will decompensate placed on the lower level of care Discharge Planning To be determined Request HC Surrog/Guard Advoc?: Yes Mayito Mendez MD April 06, 2017 12:22
[2017-04-06 17:00] VITALS: BP 114/69; PULSE 100; RESP 18; TEMP 98.4
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
[2017-04-06] MEDS: PANTOPRAZOLE SOD 40 MG DELAYED RELEASE TAB PO SCH (21:21)
[2017-04-06] MEDS: ATORVASTATIN 80 MG TAB PO SCH (21:21)
[2017-04-06] MEDS: INSULIN DETEMIR 100 UNITS/ML VIAL SQ SCH (21:40)
[2017-04-06] MEDS: traZODone HCL 50 MG TAB PO PRN (23:11)
[2017-04-07 06:00] VITALS: BP 102/50; PULSE 64; RESP 18; TEMP 98; O2SAT 98
[2017-04-07] MEDS: INSULIN ASPART SUPPLEMENTAL SCALE SQ SCH ×4 (06:22→21:15)
[2017-04-07] MEDS: NICOTINE 21 MG/24 HR PATCH T-DERMAL SCH (07:52)
[2017-04-07 08:05] LABS: AUTOMATED NEUTROPHIL # 5.8 TH/MM3 (1.8-7.7); BASOPHIL # 0.1 TH/MM3 (0-0.2); BASOPHIL % 0.8 % (0.0-2.0); EOSINOPHIL # 0.2 TH/MM3 (0-0.4); EOSINOPHIL % 2.3 % (0.0-4.0); HEMATOCRIT 32.5 % (35.0-46.0); HEMO FLAGS DIFF FINAL; LYMPH % 27.5 % (9.0-44.0); LYMPHOCYTE # 2.5 TH/MM3 (1.0-4.8); MEAN CELL VOLUME 74.3 FL (80.0-100.0); MEAN CORPUSCULAR HEMOGLOBIN 23.5 PG (27.0-34.0); MEAN CORPUSCULAR HGB CONC 31.6 % (32.0-36.0); MONO % 6.7 % (0.0-8.0); NEUT % 62.7 % (16.0-70.0); PLATELET COUNT 362 TH/MM3 (150-450); RED BLOOD COUNT 4.37 MIL/MM3 (4.00-5.30); RED CELL DISTRIBUTION WIDTH 17.4 % (11.6-17.2); WHITE BLOOD COUNT 9.2 TH/MM3 (4.0-11.0)
[2017-04-07] MEDS: LISINOPRIL 10 MG TAB PO SCH (08:11)
[2017-04-07] MEDS: ISOSORBIDE MONONITRATE 20 MG TAB PO SCH (08:13)
[2017-04-07] MEDS: CHOLECALCIFEROL (VIT D3) 1000 UNIT TAB PO SCH (08:25)
[2017-04-07] MEDS: HALOPERIDOL LACTATE ORAL CONC 10 MG/5 ML CUP PO SCH ×2 (08:25→21:27)
[2017-04-07] MEDS: FERROUS SULFATE 325 MG (65 MG ELEMENTAL IRON) TAB PO SCH (08:25)
--- NOTE | 2017-04-07 11:15 | PD.CONS ---
HPI Chief Complaint Bladder Prolapse Date Seen: April 07, 2017 Time Seen: 10:30 (Kirill De La Rosa MD R2) Travel History International Travel<30 Days: No Contact w/Intl Traveler<30Days: No Known Affected Area: No (Kirill De La Rosa MD) History of Present Illness HPI Pt is a 72 year old female with history of dementia who is admitted under the Mon Act who is being evaluated for possible bladder prolapse. She reports this has been an ongoing issue for the past several years. She experiences discomfort in her groin area when she strains to have a bowel movement. She has been able to visualize something coming from her vagina. She is normally able to push back anything that protrudes from the vagina. She denies any vaginal bleeding. She occasionally notices rectal bleeding, reports having soft bowel movements daily. She had been x3, reports 3 vaginal deliveries. No history of breast, cervical or uterine cancer. History limited due to pts dementia. Para: 3 : 3 (Kirill De La Rosa MD R2) History Past Medical History Narrative Medical Per review of EMR: Arthritis Depression Dementia Hyperlipidemia COPD Hypertension (Kirill De La Rosa MD R2) Obstetric History Obstetric History Patient reports vaginal delivery 3 Pt with Pfannenstiel incision (Kirill De La Rosa MD R2) Past Surgical History Narrative Surgical Appendectomy Cholecystectomy ? Hysterectomy Tonsillectomy Eye surgery (Kirill De La Rosa MD) Family History Narrative Family History Per review of EMR: Denies any significant family medical history (Kirill De La Rosa MD) Social History Narrative Social History Patient lives in a longterm. Alcohol Use: No Tobacco Use: No Substance Abuse: No (Kirill De La Rosa MD R2) Allergies-Medications (Allergen,Severity, Reaction): Coded Allergies: Codeine (Verified Allergy, Unknown, Hives, 07/20/16) Darvon (Verified Allergy, Unknown, 07/20/16) Percodan (Verified Allergy, Unknown, 07/20/16) Phenobarbital (Verified Allergy, Unknown, 07/20/16) Aspirin (Verified Adverse Reaction, Mild, Dyspepsia, 07/20/16) Home Meds Reported Medications Nitroglycerin SL 0.4 Mg Subl0.4 Mg SL DIRECTED PRN (CHEST PAIN) #100 TAB.SL Ref 0 ONE TABLET UNDER THE TONGUE NEEDED FOR CHEST PAIN, MAY REPEAT EVERY FIVE MINUTES FOR A TOTAL OF 3 DOSES OR CALL 911 IF NO RELIEF 03/24/17 Cyclobenzaprine (Flexeril)10 Mg Tab10 Mg PO Q12HR PRN (LOW BACK PAIN) #90 TAB Ref 0 03/24/17 Clonidine 0.1 Mg Tab0.1 Mg PO Q6HR PRN (HTN) #60 TAB Ref 0 03/24/17 Acetaminophen (Mapap)325 Mg Yjh606 Mg PO Q4HR PRN (MILD PAIN) Ref 0 03/24/17 Insulin Lispro (Human) Inj (Humalog Inj)1,000 Unit/10 Ml Vial6 Units SQ TIDAC # 1 VIAL Ref 0 03/24/17 Sertraline (Zoloft)25 Mg Tab25 Mg PO Q12HR #30 TAB Ref 0 03/24/17 Tramadol 50 Mg Tab50 Mg PO BID Ref 0 03/24/17 Quetiapine (Seroquel)50 Mg Tab50 Mg PO HS #30 TAB Ref 0 03/24/17 Pantoprazole 40 Mg Tab40 Mg PO HS #30 TAB Ref 0 03/24/17 Lidocaine Patch 12 HR (Lidoderm Patch 12 HR)5% Patch1 Patch TOPICAL DAILY #1 BOX Ref 0 Remove patch after 12 hours 03/24/17 Isosorbide Mononitrate 10 Mg Tab10 Mg PO DAILY #60 TAB Take 2 doses 7 hours apart. 03/24/17 Insulin Glargine Inj (Lantus Inj)1,000 Unit/10 Ml Vial18 Units SQ HS Ref 0 03/24/17 Cholecalciferol (Vitamin D3)1,000 Unit Tab1,000 Units PO DAILY #1 BOTTLE Ref 0 03/24/17 Atorvastatin 80 Mg Tab80 Mg PO HS #30 TAB Ref 0 03/24/17 Review of Systems ROS Limitations: Poor Historian (Due to Dementia ) Gastrointestinal: No: Diarrhea, Constipation Genitourinary: No: Urgency, Dysuria, Incontinence, Vaginal Bleeding (Kirill De La Rosa MD R2) Physical Exam Vital Signs Date Time Temp Pulse Resp B/P Pulse Ox O2 Delivery O2 Flow Rate FiO2 04/07/17 06:00 98.0 64 18 102/50 98 04/06/17 17:00 98.4 100 18 114/69 Narrative GENERAL: Well-nourished, well-developed patient. SKIN: Warm and dry. HEAD: Normocephalic and atraumatic. EYES: No scleral icterus. No injection or drainage. ENT: No nasal drainage noted. Mucous membranes pink. Airway patent. NECK: Supple, trachea midline. No JVD. CARDIOVASCULAR: Warm and well perfused RESPIRATORY: Normal work of breathing. No accessory muscle use. ABDOMEN/GI: Abdomen soft, non-tender, no rebound, no guarding GENITOURINARY: External Genitalia: intact and normal in appearance Decreased tone of vaginal winters. No anterior-posterior prolapse with Valsalva. Lateral vaginal wall prolapse appreciated. No significant vaginal discharge. Uterus and ovaries not appreciated on bimanual exam. No masses. EXTREMITIES: No cyanosis or edema. NEUROLOGICAL: Awake and alert. Motor and sensory grossly within normal limits. Normal speech. Pt able to follow commands, slow response. (Kirill De La Rosa MD R2) Data Data Orders Complete Blood Count With Diff (04/07/17 06:00) Consult Gynecology (04/06/17 ) (Hub Use Only)Inp Phy Cons/Ref (04/06/17 ) Us Pelvis Comp Skidder/Non-Preg (04/07/17 ) Labs Laboratory Tests Test 04/07/17 07:28 White Blood Count 9.2 Red Blood Count 4.37 Hemoglobin 10.3 Hematocrit 32.5 Mean Corpuscular Volume 74.3 Mean Corpuscular Hemoglobin 23.5 Mean Corpuscular Hemoglobin 31.6 Concent Red Cell Distribution Width 17.4 Platelet Count 362 Mean Platelet Volume 8.2 Neutrophils (%) (Auto) 62.7 Lymphocytes (%) (Auto) 27.5 Monocytes (%) (Auto) 6.7 Eosinophils (%) (Auto) 2.3 Basophils (%) (Auto) 0.8 Neutrophils # (Auto) 5.8 Lymphocytes # (Auto) 2.5 Monocytes # (Auto) 0.6 Eosinophils # (Auto) 0.2 Basophils # (Auto) 0.1 CBC Comment DIFF FINAL Differential Comment (Kirill De La Rosa MD R2) [facility] Medical Record Reviewed: Yes Interpretation(s) Pt is a 72 year old female with history of dementia who is admitted under the Mon Act, evaluated for possible bladder prolapse. -Bladder prolapse No bladder prolapse appreciated on exam with Valsalva maneuver UA with no signs of infection Pt denies constipation, irregular bowel movements, but notes occasional rectal bleeding Will add sravan-Colace 2 Tabs PRN constipation Pelvic US ordered per medicine team Will follow imaging results -Other medical problems to be managed by medicine team -Psychiatry to manage dementia, behavioral disturbance sdw Dr. Medina Admitting diagnosis: Demential (Kirill De La Rosa MD R2) Attending Attestation Patient seen and examined. Agree with management plan. (Denis Medina MD) Kirill De La Rosa MD R2 April 07, 2017 11:13 Denis Medina MD April 07, 2017 11:33
--- NOTE | 2017-04-07 14:33 | RADRPT ---
EXAM DATE/TIME: 04/07/2017 11:44 CORRECTION Corrected on: April 07, 2017; [place] COMPARISON: No previous studies available for comparison. INDICATIONS : Evaluate vaginal and bladder prolapse. Patient states that she feels something bulging when she stra ins. MEDICAL HISTORY : Diabetes mellitus type 2. SURGICAL HISTORY : Tonsillectomy. Hysterectomy. Cholecystectomy. Right shoulder and right elbow surgery. Appendectomy. ENCOUNTER: Initial ACUITY: 1 day PAIN SCORE: 0/10 LOCATION: Bilateral pelvis MEASUREMENTS: UTERUS: Removed. ENDOMETRIAL STRIPE: RIGHT OVARY: Removed. LEFT OVARY: Removed. FINDINGS: UTERUS: Status post hysterectomy. RIGHT OVARY: Ovary contains no mass or significant cystic lesion. LEFT OVARY: Ovary contains no mass or significant cystic lesion. MISCELLANEOUS: No free fluid. CONCLUSION: 1. Postsurgical changes as above. no evidence of pelvic mass Shon Carrillo MD on April 07, 2017 at 14:31 Board Certified Radiologist. This report was verified electronically. Varghese Zazueta MD on April 07, 2017 at 18:01 Board Certified Radiologist. This report was verified electronically.
--- NOTE | 2017-04-07 16:12 | HHI.PYPN ---
Subjective Remarks Patient seen in day room with nurse reji Casper, patient continues diffusely confused and demented though markedly calmer with better affect, is more cooperative responding to questions some of which appears to be fairly goal oriented. Patient compliant with the medications. For now continue treatment Review of Systems Except as stated in HPI: all other systems reviewed are Neg Objective Alert: Yes [place]: Person, Place Mood: Calm Affect: Blunted Memory Intact: Comment (impaired) Hallucinations: Other (no AVH) Delusions: Yes Delusion Type: Paranoid Suicidal: Ideation (no SI) Homicidal: Ideation (no HI) Insight/Judgment Poor Labs Test 04/07/17 07:28 White Blood Count 9.2 TH/MM3 Red Blood Count 4.37 MIL/MM3 Hemoglobin 10.3 GM/DL Hematocrit 32.5 % Mean Corpuscular Volume 74.3 FL Mean Corpuscular Hemoglobin 23.5 PG Mean Corpuscular Hemoglobin 31.6 % Concent Red Cell Distribution Width 17.4 % Platelet Count 362 TH/MM3 Mean Platelet Volume 8.2 FL Neutrophils (%) (Auto) 62.7 % Lymphocytes (%) (Auto) 27.5 % Monocytes (%) (Auto) 6.7 % Eosinophils (%) (Auto) 2.3 % Basophils (%) (Auto) 0.8 % Neutrophils # (Auto) 5.8 TH/MM3 Lymphocytes # (Auto) 2.5 TH/MM3 Monocytes # (Auto) 0.6 TH/MM3 Eosinophils # (Auto) 0.2 TH/MM3 Basophils # (Auto) 0.1 TH/MM3 CBC Comment DIFF FINAL Differential Comment Vitals/IOs Vital Signs Date Time Temp Pulse Resp B/P Pulse Ox O2 Delivery O2 Flow Rate FiO2 04/07/17 06:00 98.0 64 18 102/50 98 Intake and Output 04/06/17 04/06/17 04/06/17 07:59 15:59 23:59 Intake Total 360 ml Balance 360 ml Assessment & Plan Problem List: (1) Dementia 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 Compliant medication Justification for Cont. Inpt. At this time patient decompensate if placed in a lower level of care Discharge Planning To be determined Request HC Surrog/Guard Advoc?: Yes Mayiot Mendez MD April 07, 2017 16:12
[2017-04-07 18:18] VITALS: BP 149/79; PULSE 90; RESP 16; TEMP 98.1; O2SAT 98
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
[2017-04-07] MEDS: INSULIN DETEMIR 100 UNITS/ML VIAL SQ SCH (21:15)
[2017-04-07] MEDS: ATORVASTATIN 80 MG TAB PO SCH (21:27)
[2017-04-07] MEDS: PANTOPRAZOLE SOD 40 MG DELAYED RELEASE TAB PO SCH (21:27)
[2017-04-08] MEDS: INSULIN ASPART SUPPLEMENTAL SCALE SQ SCH ×4 (05:18→20:39)
[2017-04-08 05:30] VITALS: BP 140/68; PULSE 96; RESP 17; TEMP 96.7; O2SAT 98
[2017-04-08] MEDS: NICOTINE 21 MG/24 HR PATCH T-DERMAL SCH (08:00)
[2017-04-08] MEDS: HALOPERIDOL LACTATE ORAL CONC 10 MG/5 ML CUP PO SCH ×2 (08:55→20:34)
[2017-04-08] MEDS: ISOSORBIDE MONONITRATE 20 MG TAB PO SCH (08:56)
[2017-04-08] MEDS: LISINOPRIL 10 MG TAB PO SCH (08:56)
[2017-04-08] MEDS: FERROUS SULFATE 325 MG (65 MG ELEMENTAL IRON) TAB PO SCH (08:56)
[2017-04-08] MEDS: CHOLECALCIFEROL (VIT D3) 1000 UNIT TAB PO SCH (08:56)
--- NOTE | 2017-04-08 09:41 | HHI.PYPN ---
Subjective Remarks Patient seen in day room with nurse Madhuri, chart reviewed. Patient compliant medication. Patient continues markedly confused disoriented though pleasant today her paranoia is markedly decreased at this time sugars no significant behavioral problem Review of Systems Except as stated in HPI: all other systems reviewed are Neg Objective Alert: Yes [place]: Person, Place Mood: Calm Affect: Blunted Memory Intact: Comment (impaired) Hallucinations: Other (no AVH) Delusions: Yes Delusion Type: Paranoid Suicidal: Ideation (no SI) Homicidal: Ideation (no HI) Insight/Judgment Poor Vitals/IOs Vital Signs Date Time Temp Pulse Resp B/P Pulse Ox O2 Delivery O2 Flow Rate FiO2 04/08/17 05:30 96.7 96 17 140/68 98 Intake and Output 04/07/17 04/07/17 04/08/17 08:00 16:00 00:00 Intake Total 480 ml 1920 ml 960 ml Balance 480 ml 1920 ml 960 ml Assessment & Plan Problem List: (1) Dementia associated with other underlying disease with behavioral disturbance ICD Code: F02.81 Assessment & Plan Estimated LOS: days patient continues confused and demented, though no significant behavioral problems at been noted Justification for Cont. Inpt. At this time patient will decompensate if placed in a lower level of care Discharge Planning To be determined Request HC Surrog/Guard Advoc?: Yes Mayito Mendez MD April 08, 2017 09:41
[2017-04-08] MEDS: CYCLOBENZAPRINE HCL 10 MG TAB PO PRN (13:30)
[2017-04-08 16:00] VITALS: BP 132/74; PULSE 96; RESP 18; TEMP 98.2; O2SAT 96
[2017-04-08] MEDS: PANTOPRAZOLE SOD 40 MG DELAYED RELEASE TAB PO SCH (20:34)
[2017-04-08] MEDS: ATORVASTATIN 80 MG TAB PO SCH (20:34)
[2017-04-08] MEDS: traZODone HCL 50 MG TAB PO PRN (20:34)
[2017-04-08] MEDS: INSULIN DETEMIR 100 UNITS/ML VIAL SQ SCH (20:42)
[2017-04-09 05:30] VITALS: BP 131/70; PULSE 71; RESP 15; TEMP 96.9
[2017-04-09] MEDS: INSULIN ASPART SUPPLEMENTAL SCALE SQ SCH ×4 (06:08→20:59)
[2017-04-09] MEDS: NICOTINE 21 MG/24 HR PATCH T-DERMAL SCH (07:53)
[2017-04-09] MEDS: LISINOPRIL 10 MG TAB PO SCH (09:26)
[2017-04-09] MEDS: CHOLECALCIFEROL (VIT D3) 1000 UNIT TAB PO SCH (09:26)
[2017-04-09] MEDS: ISOSORBIDE MONONITRATE 20 MG TAB PO SCH (09:26)
[2017-04-09] MEDS: FERROUS SULFATE 325 MG (65 MG ELEMENTAL IRON) TAB PO SCH (09:26)
[2017-04-09] MEDS: HALOPERIDOL LACTATE ORAL CONC 10 MG/5 ML CUP PO SCH ×2 (09:26→20:57)
--- NOTE | 2017-04-09 15:17 | HHI.PYPN ---
Subjective Remarks Patient seen in day room, staff states she did sleep better last night. Compliant medications. Patient continues confused and demented though the intensity of the paranoia when she is quiet and pleasant at the present time Review of Systems Except as stated in HPI: all other systems reviewed are Neg Objective Alert: Yes [place]: Person, Place Mood: Calm Affect: Blunted Memory Intact: Comment (impaired) Hallucinations: Other (no AVH) Delusions: Yes Delusion Type: Paranoid Suicidal: Ideation (no SI) Homicidal: Ideation (no HI) Insight/Judgment Poor Vitals/IOs Vital Signs Date Time Temp Pulse Resp B/P Pulse Ox O2 Delivery O2 Flow Rate FiO2 04/09/17 05:30 96.9 71 15 131/70 04/08/17 16:00 96 Intake and Output 04/08/17 04/08/17 04/09/17 08:00 16:00 00:00 Intake Total 480 ml 1080 ml 990 ml Balance 480 ml 1080 ml 990 ml Assessment & Plan Problem List: (1) Dementia associated with other underlying disease with behavioral disturbance ICD Code: F02.81 Assessment & Plan Estimated LOS: days patient remains quite confused and demented the behaviors of competence often. Sleep is improving continue treatment no change Justification for Cont. Inpt. At this time patient will decompensate if placed in a lower level of care Discharge Planning To be determined Request HC Surrog/Guard Advoc?: Yes Mayito Mendez MD April 09, 2017 15:17
[2017-04-09 17:32] VITALS: BP 124/65; PULSE 99; RESP 18; TEMP 97.7; O2SAT 99
[2017-04-09] MEDS: traZODone HCL 50 MG TAB PO PRN (20:57)
[2017-04-09] MEDS: ATORVASTATIN 80 MG TAB PO SCH (20:57)
[2017-04-09] MEDS: PANTOPRAZOLE SOD 40 MG DELAYED RELEASE TAB PO SCH (20:57)
[2017-04-09] MEDS: INSULIN DETEMIR 100 UNITS/ML VIAL SQ SCH (20:59)
[2017-04-10] MEDS: INSULIN ASPART SUPPLEMENTAL SCALE SQ SCH ×4 (06:16→20:58)
[2017-04-10 06:39] VITALS: BP 127/74; PULSE 84; RESP 16; TEMP 97.5; O2SAT 93
[2017-04-10] MEDS: FERROUS SULFATE 325 MG (65 MG ELEMENTAL IRON) TAB PO SCH (09:00)
[2017-04-10] MEDS: NICOTINE 21 MG/24 HR PATCH T-DERMAL SCH (09:00)
[2017-04-10] MEDS: CHOLECALCIFEROL (VIT D3) 1000 UNIT TAB PO SCH (09:04)
[2017-04-10] MEDS: HALOPERIDOL LACTATE ORAL CONC 10 MG/5 ML CUP PO SCH ×2 (09:05→20:51)
[2017-04-10] MEDS: ISOSORBIDE MONONITRATE 20 MG TAB PO SCH (09:05)
[2017-04-10] MEDS: LISINOPRIL 10 MG TAB PO SCH (09:08)
--- NOTE | 2017-04-10 12:37 | HHI.PYPN ---
Subjective Remarks Patient seen in day room with nurse Benita, patient calm cooperative confused but no behavioral issues, for now continue treatment Review of Systems Except as stated in HPI: all other systems reviewed are Neg Objective Alert: Yes [place]: Person, Place Mood: Calm Affect: Blunted Memory Intact: Comment (impaired) Hallucinations: Other (no AVH) Delusions: Yes Delusion Type: Paranoid Suicidal: Ideation (no SI) Homicidal: Ideation (no HI) Insight/Judgment Very poor Vitals/IOs Vital Signs Date Time Temp Pulse Resp B/P Pulse Ox O2 Delivery O2 Flow Rate FiO2 04/10/17 06:39 97.5 84 16 127/74 93 Intake and Output 04/09/17 04/09/17 04/10/17 08:00 16:00 00:00 Intake Total 750 ml Balance 750 ml Assessment & Plan Problem List: (1) Dementia associated with other underlying disease with behavioral disturbance ICD Code: F02.81 Assessment & Plan Estimated LOS: days this time patient continues confused and demented, though behaviors of improved. There is a decrease also in her paranoia Justification for Cont. Inpt. At this time patient will decompensate if placed in a lower level of care Discharge Planning To be determined Request HC Surrog/Guard Advoc?: Yes Mayito Mendez MD April 10, 2017 12:37
[2017-04-10 17:44] VITALS: BP 113/59; PULSE 98; RESP 18; TEMP 97.6; O2SAT 95
[2017-04-10] MEDS: PANTOPRAZOLE SOD 40 MG DELAYED RELEASE TAB PO SCH (20:52)
[2017-04-10] MEDS: ATORVASTATIN 80 MG TAB PO SCH (20:52)
[2017-04-10] MEDS: LORazepam 0.5 MG TAB PO PRN (20:52)
[2017-04-10] MEDS: INSULIN DETEMIR 100 UNITS/ML VIAL SQ SCH (21:00)
[2017-04-11 06:00] VITALS: BP 105/67; PULSE 80; RESP 16; TEMP 98
[2017-04-11] MEDS: INSULIN ASPART SUPPLEMENTAL SCALE SQ SCH ×4 (06:07→20:14)
[2017-04-11] MEDS: LISINOPRIL 10 MG TAB PO SCH (08:01)
[2017-04-11] MEDS: NICOTINE 21 MG/24 HR PATCH T-DERMAL SCH (08:01)
[2017-04-11] MEDS: ISOSORBIDE MONONITRATE 20 MG TAB PO SCH (08:01)
[2017-04-11] MEDS: CHOLECALCIFEROL (VIT D3) 1000 UNIT TAB PO SCH (08:12)
[2017-04-11] MEDS: FERROUS SULFATE 325 MG (65 MG ELEMENTAL IRON) TAB PO SCH (08:12)
[2017-04-11] MEDS: HALOPERIDOL LACTATE ORAL CONC 10 MG/5 ML CUP PO SCH ×2 (08:12→20:16)
--- NOTE | 2017-04-11 11:22 | HHI.PYPN ---
Subjective Remarks Pt seen and discussed with staff. She has had intermittent outbursts (yelling and screaming) but is currently calm. She is cooperative with care and has been spending time in dayroom today. No SI/HI. No medication side effects. Objective Alert: Yes [place]: Person, Place Mood: Calm Affect: Restricted Memory Intact: Comment (impaired) Hallucinations: Other (no AVH) Delusions: Yes Delusion Type: Paranoid Suicidal: Ideation (no SI) Homicidal: Ideation (no HI) Insight/Judgment poor Vitals/IOs Vital Signs Date Time Temp Pulse Resp B/P Pulse Ox O2 Delivery O2 Flow Rate FiO2 04/11/17 06:00 98.0 80 16 105/67 04/10/17 17:44 95 Intake and Output 04/10/17 04/10/17 04/11/17 08:00 16:00 00:00 Intake Total 480 ml 1320 ml Balance 480 ml 1320 ml Assessment & Plan Problem List: (1) Dementia associated with other underlying disease with behavioral disturbance ICD Code: F02.81 Assessment & Plan Continue current tx plan Estimated LOS: days Justification for Cont. Inpt. impairments in self care Request HC Surrog/Guard Advoc?: Yes Brigida Conn MD April 11, 2017 11:22
[2017-04-11 18:00] VITALS: BP 174/85; PULSE 93; RESP 17; TEMP 98.4; O2SAT 100
[2017-04-11] MEDS: INSULIN DETEMIR 100 UNITS/ML VIAL SQ SCH (20:15)
[2017-04-11] MEDS: PANTOPRAZOLE SOD 40 MG DELAYED RELEASE TAB PO SCH (20:16)
[2017-04-11] MEDS: ATORVASTATIN 80 MG TAB PO SCH (20:16)
[2017-04-12 06:04] VITALS: BP 154/70; PULSE 91; RESP 17; TEMP 97.1; O2SAT 98
[2017-04-12] MEDS: INSULIN ASPART SUPPLEMENTAL SCALE SQ SCH ×4 (06:31→20:28)
[2017-04-12] MEDS: HALOPERIDOL LACTATE ORAL CONC 10 MG/5 ML CUP PO SCH ×2 (08:16→20:28)
[2017-04-12] MEDS: ISOSORBIDE MONONITRATE 20 MG TAB PO SCH (08:17)
[2017-04-12] MEDS: CHOLECALCIFEROL (VIT D3) 1000 UNIT TAB PO SCH (08:17)
[2017-04-12] MEDS: LISINOPRIL 10 MG TAB PO SCH (08:17)
[2017-04-12] MEDS: FERROUS SULFATE 325 MG (65 MG ELEMENTAL IRON) TAB PO SCH (08:18)
[2017-04-12] MEDS: NICOTINE 21 MG/24 HR PATCH T-DERMAL SCH (08:22)
--- NOTE | 2017-04-12 13:58 | HHI.PYPN ---
Subjective Remarks Pt seen and discussed with staff. Pt has been compliant with medications and is tolerating them without side effects. She has been in good behavioral control. Spending most of day out in milieu interacting with peers. Objective Alert: Yes [place]: Person, Place Mood: Calm Affect: Restricted Memory Intact: Comment (impaired) Hallucinations: Other (no AVH) Delusions: Yes Delusion Type: Paranoid Suicidal: Ideation (no SI) Homicidal: Ideation (no HI) Insight/Judgment poor Vitals/IOs Vital Signs Date Time Temp Pulse Resp B/P Pulse Ox O2 Delivery O2 Flow Rate FiO2 04/12/17 06:04 97.1 91 17 154/70 98 Intake and Output 04/11/17 04/11/17 04/12/17 08:00 16:00 00:00 Intake Total 240 ml 240 ml 960 ml Balance 240 ml 240 ml 960 ml Assessment & Plan Problem List: (1) Dementia associated with other underlying disease with behavioral disturbance ICD Code: F02.81 Assessment & Plan Continue current tx plan. Estimated LOS: days Justification for Cont. Inpt. risk of decompensation Request HC Surrog/Guard Advoc?: Yes Brigida Conn MD April 12, 2017 13:58
[2017-04-12 19:58] VITALS: BP 154/96; PULSE 99; RESP 18; TEMP 98.7; O2SAT 100
[2017-04-12] MEDS: PANTOPRAZOLE SOD 40 MG DELAYED RELEASE TAB PO SCH (20:28)
[2017-04-12] MEDS: ATORVASTATIN 80 MG TAB PO SCH (20:28)
[2017-04-12] MEDS: INSULIN DETEMIR 100 UNITS/ML VIAL SQ SCH (20:28)
[2017-04-13 05:38] VITALS: BP 100/62; PULSE 81; RESP 18; TEMP 98.5; O2SAT 99
[2017-04-13] MEDS: INSULIN ASPART SUPPLEMENTAL SCALE SQ SCH ×4 (06:22→20:25)
--- NOTE | 2017-04-13 08:59 | HHI.PYPN ---
Subjective Remarks Patient seen in dayroom with floor staff, chart reviewed, patient continues pleasantly confused. No significant behavioral problems. Paranoia anger and vigilance has significantly receded. For now continue treatment Review of Systems Except as stated in HPI: all other systems reviewed are Neg Objective Alert: Yes [place]: Person, Place Mood: Calm Affect: Restricted Memory Intact: Comment (impaired) Hallucinations: Other (no AVH) Delusions: Yes Delusion Type: Paranoid Suicidal: Ideation (no SI) Homicidal: Ideation (no HI) Insight/Judgment Very poor Vitals/IOs Vital Signs Date Time Temp Pulse Resp B/P Pulse Ox O2 Delivery O2 Flow Rate FiO2 04/13/17 05:38 98.5 81 18 100/62 99 Intake and Output 04/12/17 04/12/17 04/13/17 08:00 16:00 00:00 Intake Total 0 ml Balance 0 ml Assessment & Plan Problem List: (1) Dementia associated with other underlying disease with behavioral disturbance ICD Code: F02.81 Assessment & Plan Estimated LOS: days patient remains confused and demented, told her behaviors anger irritability paranoia markedly decreased. Patient compliant medications Justification for Cont. Inpt. At this time the patient would significantly decompensate if placed in a lower level of care Discharge Planning To be determined Request HC Surrog/Guard Advoc?: Yes Mayito Mendez MD April 13, 2017 08:59
[2017-04-13] MEDS: ISOSORBIDE MONONITRATE 20 MG TAB PO SCH (09:00)
[2017-04-13] MEDS: FERROUS SULFATE 325 MG (65 MG ELEMENTAL IRON) TAB PO SCH (09:00)
[2017-04-13] MEDS: NICOTINE 21 MG/24 HR PATCH T-DERMAL SCH (09:00)
[2017-04-13] MEDS: LISINOPRIL 10 MG TAB PO SCH (09:00)
[2017-04-13] MEDS: HALOPERIDOL LACTATE ORAL CONC 10 MG/5 ML CUP PO SCH ×2 (09:10→20:25)
[2017-04-13] MEDS: CHOLECALCIFEROL (VIT D3) 1000 UNIT TAB PO SCH (09:10)
[2017-04-13] MEDS: CYCLOBENZAPRINE HCL 10 MG TAB PO PRN (15:23)
[2017-04-13] MEDS: INSULIN DETEMIR 100 UNITS/ML VIAL SQ SCH (20:24)
[2017-04-13] MEDS: PANTOPRAZOLE SOD 40 MG DELAYED RELEASE TAB PO SCH (20:24)
[2017-04-13] MEDS: ATORVASTATIN 80 MG TAB PO SCH (20:25)
[2017-04-14 06:08] VITALS: BP 116/59; PULSE 86; RESP 18; TEMP 98.5; O2SAT 98
[2017-04-14] MEDS: INSULIN ASPART SUPPLEMENTAL SCALE SQ SCH ×4 (06:28→21:00)
[2017-04-14] MEDS: LISINOPRIL 10 MG TAB PO SCH (08:30)
[2017-04-14] MEDS: ISOSORBIDE MONONITRATE 20 MG TAB PO SCH (08:30)
[2017-04-14] MEDS: FERROUS SULFATE 325 MG (65 MG ELEMENTAL IRON) TAB PO SCH (08:30)
[2017-04-14] MEDS: HALOPERIDOL LACTATE ORAL CONC 10 MG/5 ML CUP PO SCH ×2 (08:30→22:02)
[2017-04-14] MEDS: CHOLECALCIFEROL (VIT D3) 1000 UNIT TAB PO SCH (08:30)
[2017-04-14] MEDS: NICOTINE 21 MG/24 HR PATCH T-DERMAL SCH (09:00)
--- NOTE | 2017-04-14 14:40 | HHI.PYPN ---
Subjective Remarks Patient seen in day room with floor staff. Patient continues, pleasant with me. Compliant medications. Continues markedly confused and demented. Review of Systems Except as stated in HPI: all other systems reviewed are Neg Objective Alert: Yes [place]: Person, Place Mood: Calm Affect: Restricted Memory Intact: Comment (impaired) Hallucinations: Other (no AVH) Delusions: Yes Delusion Type: Paranoid Suicidal: Ideation (no SI) Homicidal: Ideation (no HI) Insight/Judgment Very poor Vitals/IOs Vital Signs Date Time Temp Pulse Resp B/P Pulse Ox O2 Delivery O2 Flow Rate FiO2 04/14/17 06:08 98.5 86 18 116/59 98 Intake and Output 04/13/17 04/13/17 04/14/17 08:00 16:00 00:00 Intake Total 240 ml 600 ml Balance 240 ml 600 ml Assessment & Plan Problem List: (1) Dementia associated with other underlying disease with behavioral disturbance ICD Code: F02.81 Assessment & Plan Estimated LOS: days patient continues confused and demented, though most significant behavioral problems. For now continue treatment Justification for Cont. Inpt. At this time patient decompensate if placed in a lower level of care Discharge Planning To be determined Request HC Surrog/Guard Advoc?: Yes Mayito Mendez MD April 14, 2017 14:40
[2017-04-14 17:59] VITALS: BP 139/65; PULSE 88; RESP 16; TEMP 98.7; O2SAT 99
[2017-04-14] MEDS: PANTOPRAZOLE SOD 40 MG DELAYED RELEASE TAB PO SCH (22:01)
[2017-04-14] MEDS: ATORVASTATIN 80 MG TAB PO SCH (22:02)
[2017-04-14] MEDS: INSULIN DETEMIR 100 UNITS/ML VIAL SQ SCH (22:06)
[2017-04-15] MEDS: LORazepam 0.5 MG TAB PO PRN (01:28)
[2017-04-15] MEDS: CYCLOBENZAPRINE HCL 10 MG TAB PO PRN (01:29)
[2017-04-15 06:00] VITALS: BP 105/59; PULSE 84; RESP 16; TEMP 98.2; O2SAT 97
[2017-04-15] MEDS: INSULIN ASPART SUPPLEMENTAL SCALE SQ SCH ×4 (06:28→21:00)
[2017-04-15] MEDS: LISINOPRIL 10 MG TAB PO SCH (08:22)
[2017-04-15] MEDS: NICOTINE 21 MG/24 HR PATCH T-DERMAL SCH (08:23)
[2017-04-15] MEDS: CHOLECALCIFEROL (VIT D3) 1000 UNIT TAB PO SCH (08:23)
[2017-04-15] MEDS: HALOPERIDOL LACTATE ORAL CONC 10 MG/5 ML CUP PO SCH ×2 (08:23→21:02)
[2017-04-15] MEDS: ISOSORBIDE MONONITRATE 20 MG TAB PO SCH (08:23)
[2017-04-15] MEDS: FERROUS SULFATE 325 MG (65 MG ELEMENTAL IRON) TAB PO SCH (09:00)
[2017-04-15] MEDS: ACETAMINOPHEN 325 MG TAB PO PRN (12:43)
--- NOTE | 2017-04-15 16:13 | HHI.PYPN ---
Subjective Remarks Patient seen in day room the floor staff, patient continues no significant behavioral problems, continues diffusely confused and demented, pleasant. Compliant medication. At this time we'll discontinue one-to-one observation place on close obs off unit privileges Review of Systems Except as stated in HPI: all other systems reviewed are Neg Objective Alert: Yes [place]: Person, Place Mood: Calm Affect: Restricted Memory Intact: Comment (impaired) Hallucinations: Other (no AVH) Delusions: Yes Delusion Type: Paranoid Suicidal: Ideation (no SI) Homicidal: Ideation (no HI) Insight/Judgment Poor Vitals/IOs Vital Signs Date Time Temp Pulse Resp B/P Pulse Ox O2 Delivery O2 Flow Rate FiO2 04/15/17 06:00 98.2 84 16 105/59 97 Intake and Output 04/14/17 04/14/17 04/15/17 08:00 16:00 00:00 Intake Total 360 ml Balance 360 ml Assessment & Plan Problem List: (1) Dementia associated with other underlying disease with behavioral disturbance ICD Code: F02.81 Assessment & Plan Estimated LOS: days patient continues confused and demented, but no significant pain or problems. For now continue treatment Justification for Cont. Inpt. At this time patient will decompensate if placed in the lower level of care Discharge Planning To be determined Request HC Surrog/Guard Advoc?: Yes Mayito Mendez MD April 15, 2017 16:13
[2017-04-15 20:00] VITALS: BP 94/52; PULSE 92; RESP 18; TEMP 96.9
[2017-04-15] MEDS: INSULIN DETEMIR 100 UNITS/ML VIAL SQ SCH (21:00)
[2017-04-15] MEDS: ATORVASTATIN 80 MG TAB PO SCH (21:01)
[2017-04-15] MEDS: PANTOPRAZOLE SOD 40 MG DELAYED RELEASE TAB PO SCH (21:01)
[2017-04-16 05:09] VITALS: BP 121/63; PULSE 92; RESP 16; TEMP 97.8; O2SAT 98
[2017-04-16] MEDS: INSULIN ASPART SUPPLEMENTAL SCALE SQ SCH (07:00)
--- NOTE | 2017-04-16 08:54 | HHI.PYPN ---
Subjective Remarks Patient seen in dayroom with floor staff, chart review, patient continues pleasant calm with me, though also continues diffusely confused. Compliant medication. For now continue treatment Review of Systems Except as stated in HPI: all other systems reviewed are Neg Objective Alert: Yes [place]: Person, Place Mood: Calm Affect: Restricted Memory Intact: Comment (impaired) Hallucinations: Other (no AVH) Delusions: Yes Delusion Type: Paranoid Suicidal: Ideation (no SI) Homicidal: Ideation (no HI) Insight/Judgment Very poor Vitals/IOs Vital Signs Date Time Temp Pulse Resp B/P Pulse Ox O2 Delivery O2 Flow Rate FiO2 04/16/17 05:09 97.8 92 16 121/63 98 Intake and Output 04/15/17 04/15/17 04/16/17 08:00 16:00 00:00 Intake Total 480 ml 720 ml Balance 480 ml 720 ml Assessment & Plan Problem List: (1) Dementia associated with other underlying disease with behavioral disturbance ICD Code: F02.81 Assessment & Plan Estimated LOS: days patient continues confused and demented, though pleasant with me, showing no significant behavioral issues at this Justification for Cont. Inpt. At this time patient will decompensate placed in a lower level of care Discharge Planning To be determined Request HC Surrog/Guard Advoc?: Yes Mayito Mendez MD Apr 16, 2017 08:54
[2017-04-16] MEDS: ISOSORBIDE MONONITRATE 20 MG TAB PO SCH (09:00)
[2017-04-16] MEDS: NICOTINE 21 MG/24 HR PATCH T-DERMAL SCH (09:00)
[2017-04-16] MEDS: LISINOPRIL 10 MG TAB PO SCH (09:39)
[2017-04-16] MEDS: FERROUS SULFATE 325 MG (65 MG ELEMENTAL IRON) TAB PO SCH (09:39)
[2017-04-16] MEDS: HALOPERIDOL LACTATE ORAL CONC 10 MG/5 ML CUP PO SCH ×2 (09:39→21:41)
[2017-04-16] MEDS: CHOLECALCIFEROL (VIT D3) 1000 UNIT TAB PO SCH (09:39)
[2017-04-16 18:00] VITALS: BP 138/63; PULSE 94; RESP 16; TEMP 97.7; O2SAT 100
[2017-04-16] MEDS: INSULIN DETEMIR 100 UNITS/ML VIAL SQ SCH (21:00)
[2017-04-16] MEDS: ATORVASTATIN 80 MG TAB PO SCH (21:41)
[2017-04-16] MEDS: PANTOPRAZOLE SOD 40 MG DELAYED RELEASE TAB PO SCH (21:41)
[2017-04-17] MEDS: CYCLOBENZAPRINE HCL 10 MG TAB PO PRN (02:51)
[2017-04-17 06:00] VITALS: BP 113/56; PULSE 86; RESP 16; TEMP 97.9
[2017-04-17] MEDS: NICOTINE 21 MG/24 HR PATCH T-DERMAL SCH (09:00)
[2017-04-17] MEDS: FERROUS SULFATE 325 MG (65 MG ELEMENTAL IRON) TAB PO SCH (09:21)
[2017-04-17] MEDS: ISOSORBIDE MONONITRATE 20 MG TAB PO SCH (09:22)
[2017-04-17] MEDS: CHOLECALCIFEROL (VIT D3) 1000 UNIT TAB PO SCH (09:23)
[2017-04-17] MEDS: HALOPERIDOL LACTATE ORAL CONC 10 MG/5 ML CUP PO SCH ×2 (09:25→21:23)
[2017-04-17] MEDS: LISINOPRIL 10 MG TAB PO SCH (09:27)
--- NOTE | 2017-04-17 13:35 | HHI.PYPN ---
Subjective Remarks Patient seen in day room with nurse Steph, chart review, patient compliant medications. Patient continues calm pleasant with me, continues diffusely confused though no behavioral problems Review of Systems Except as stated in HPI: all other systems reviewed are Neg Objective Alert: Yes [place]: Person, Place Mood: Calm Affect: Restricted Memory Intact: Comment (impaired) Hallucinations: Other (no AVH) Delusions: Yes Delusion Type: Paranoid Suicidal: Ideation (no SI) Homicidal: Ideation (no HI) Insight/Judgment Poor Vitals/IOs Vital Signs Date Time Temp Pulse Resp B/P Pulse Ox O2 Delivery O2 Flow Rate FiO2 04/17/17 06:00 97.9 86 16 113/56 04/16/17 18:00 100 Intake and Output 04/16/17 04/16/17 04/17/17 08:00 16:00 00:00 Intake Total 240 ml 840 ml Balance 240 ml 840 ml Assessment & Plan Problem List: (1) Dementia associated with other underlying disease with behavioral disturbance ICD Code: F02.81 Assessment & Plan Estimated LOS: days patient continues diffusely confused and disoriented, though no behavioral problems. Compliant medications for now continue treatment Justification for Cont. Inpt. At this time patient will decompensate if placed in the lower level of care Discharge Planning To be determined Request HC Surrog/Guard Advoc?: Yes Mayito Mendez MD Apr 17, 2017 13:35
[2017-04-17 19:27] VITALS: BP 119/68; PULSE 99; RESP 16; TEMP 98.6
[2017-04-17] MEDS: ATORVASTATIN 80 MG TAB PO SCH (21:23)
[2017-04-17] MEDS: PANTOPRAZOLE SOD 40 MG DELAYED RELEASE TAB PO SCH (21:23)
[2017-04-17] MEDS: INSULIN DETEMIR 100 UNITS/ML VIAL SQ SCH (21:24)
[2017-04-18 05:37] VITALS: BP 117/57; PULSE 77; RESP 16; TEMP 98; O2SAT 97
[2017-04-18] MEDS: NICOTINE 21 MG/24 HR PATCH T-DERMAL SCH (09:00)
[2017-04-18] MEDS: LISINOPRIL 10 MG TAB PO SCH (09:00)
[2017-04-18] MEDS: CHOLECALCIFEROL (VIT D3) 1000 UNIT TAB PO SCH (09:00)
[2017-04-18] MEDS: HALOPERIDOL LACTATE ORAL CONC 10 MG/5 ML CUP PO SCH ×2 (09:00→22:06)
[2017-04-18] MEDS: FERROUS SULFATE 325 MG (65 MG ELEMENTAL IRON) TAB PO SCH (09:01)
[2017-04-18] MEDS: ISOSORBIDE MONONITRATE 20 MG TAB PO SCH (09:01)
--- NOTE | 2017-04-18 13:43 | HHI.PYPN ---
Subjective Remarks Pt seen and discussed with staff. She has been quiet with minimal interaction, but is pleasant and cooperative. Compliant with medications and tolerating without side effects. No agitation. No SI/HI. Objective Alert: Yes [place]: Person, Place Mood: Calm Affect: Restricted Memory Intact: Comment (impaired) Hallucinations: Other (no AVH) Delusions: No Delusion Type: Other Suicidal: Ideation (no SI) Homicidal: Ideation (no HI) Insight/Judgment poor Vitals/IOs Vital Signs Date Time Temp Pulse Resp B/P Pulse Ox O2 Delivery O2 Flow Rate FiO2 04/18/17 05:37 98.0 77 16 117/57 97 Intake and Output 04/17/17 04/17/17 04/18/17 08:00 16:00 00:00 Intake Total 240 ml Balance 240 ml Assessment & Plan Problem List: (1) Dementia associated with other underlying disease with behavioral disturbance ICD Code: F02.81 Assessment & Plan Continue current tx plan. Estimated LOS: days Justification for Cont. Inpt. risk of decompensation. Request HC Surrog/Guard Advoc?: Yes Brigida Conn MD Apr 18, 2017 13:42
[2017-04-18 18:00] VITALS: BP 134/60; PULSE 90; RESP 17; TEMP 98.2; O2SAT 97
[2017-04-18] MEDS: PANTOPRAZOLE SOD 40 MG DELAYED RELEASE TAB PO SCH (21:00)
[2017-04-18] MEDS: INSULIN DETEMIR 100 UNITS/ML VIAL SQ SCH (21:00)
[2017-04-18] MEDS: ATORVASTATIN 80 MG TAB PO SCH (22:06)
[2017-04-19 06:30] VITALS: BP 128/64; PULSE 79; RESP 17; TEMP 97.8; O2SAT 98
[2017-04-19] MEDS: ISOSORBIDE MONONITRATE 20 MG TAB PO SCH (09:00)
[2017-04-19] MEDS: CHOLECALCIFEROL (VIT D3) 1000 UNIT TAB PO SCH (09:00)
[2017-04-19] MEDS: FERROUS SULFATE 325 MG (65 MG ELEMENTAL IRON) TAB PO SCH (09:00)
[2017-04-19] MEDS: NICOTINE 21 MG/24 HR PATCH T-DERMAL SCH (09:00)
[2017-04-19] MEDS: LISINOPRIL 10 MG TAB PO SCH (09:00)
[2017-04-19] MEDS: HALOPERIDOL LACTATE ORAL CONC 10 MG/5 ML CUP PO SCH ×2 (09:00→21:14)
--- NOTE | 2017-04-19 11:03 | HHI.PYPN ---
Subjective Remarks Pt seen and discussed with staff. Pt has been quiet in milieu. No behavioral problems or disturbances. She reported year as 1899 and told RN she did not know where she was. No pain or discomfort. Compliant with medications and tolerating without side effects. No SI/HI. Objective Alert: Yes [place]: Person, Place Mood: Calm Affect: Restricted Memory Intact: Comment (impaired) Hallucinations: Other (no AVH) Delusions: No Delusion Type: Other Suicidal: Ideation (no SI) Homicidal: Ideation (no HI) Insight/Judgment poor Vitals/IOs Vital Signs Date Time Temp Pulse Resp B/P Pulse Ox O2 Delivery O2 Flow Rate FiO2 04/19/17 06:30 97.8 79 17 128/64 98 Intake and Output 04/18/17 04/18/17 04/19/17 08:00 16:00 00:00 Intake Total 0 ml 480 ml Balance 0 ml 480 ml Assessment & Plan Problem List: (1) Dementia associated with other underlying disease with behavioral disturbance ICD Code: F02.81 Assessment & Plan Continue current tx plan. Estimated LOS: days Justification for Cont. Inpt. risk of decompensation Request HC Surrog/Guard Advoc?: Yes Brigida Conn MD Apr 19, 2017 11:03
[2017-04-19 18:58] VITALS: BP 132/64; PULSE 86; RESP 18; TEMP 98.6
[2017-04-19] MEDS: PANTOPRAZOLE SOD 40 MG DELAYED RELEASE TAB PO SCH (21:14)
[2017-04-19] MEDS: ATORVASTATIN 80 MG TAB PO SCH (21:14)
[2017-04-19] MEDS: ACETAMINOPHEN 325 MG TAB PO PRN (21:14)
[2017-04-19] MEDS: INSULIN DETEMIR 100 UNITS/ML VIAL SQ SCH (21:18)
[2017-04-20 05:58] VITALS: BP 106/55; PULSE 66; RESP 18; TEMP 98.2; O2SAT 97
[2017-04-20] MEDS: FERROUS SULFATE 325 MG (65 MG ELEMENTAL IRON) TAB PO SCH (09:00)
[2017-04-20] MEDS: NICOTINE 21 MG/24 HR PATCH T-DERMAL SCH (09:00)
[2017-04-20] MEDS: LISINOPRIL 10 MG TAB PO SCH (09:00)
[2017-04-20] MEDS: CHOLECALCIFEROL (VIT D3) 1000 UNIT TAB PO SCH (09:00)
[2017-04-20] MEDS: HALOPERIDOL LACTATE ORAL CONC 10 MG/5 ML CUP PO SCH ×2 (09:00→20:55)
[2017-04-20] MEDS: ISOSORBIDE MONONITRATE 20 MG TAB PO SCH (09:00)
--- NOTE | 2017-04-20 15:19 | HHI.PYPN ---
Subjective Remarks Patient seen in her room with nurse Tremayne. Patient continues pleasantly confused though no behavioral problems compliant medications. For now continue treatment Review of Systems Except as stated in HPI: all other systems reviewed are Neg Objective Alert: Yes [place]: Person, Place Mood: Calm Affect: Restricted Memory Intact: Comment (impaired) Hallucinations: Other (no AVH) Delusions: No Delusion Type: Other Suicidal: Ideation (no SI) Homicidal: Ideation (no HI) Insight/Judgment Poor Vitals/IOs Vital Signs Date Time Temp Pulse Resp B/P Pulse Ox O2 Delivery O2 Flow Rate FiO2 04/20/17 05:58 98.2 66 18 106/55 97 Intake and Output 04/19/17 04/19/17 04/20/17 08:00 16:00 00:00 Intake Total 120 ml 720 ml 480 ml Balance 120 ml 720 ml 480 ml Assessment & Plan Problem List: (1) Dementia associated with other underlying disease with behavioral disturbance ICD Code: F02.81 Assessment & Plan Estimated LOS: days patient is demented confused though no behavioral problem. Plan medications Justification for Cont. Inpt. At this time patient will decompensate if placed in a lower level of care Discharge Planning To be determined Request HC Surrog/Guard Advoc?: Yes Mayito Mendez MD Apr 20, 2017 15:19
--- NOTE | 2017-04-20 16:30 | PD.TTN ---
Present for Treatment Team Treatment Team Staff: Provider (Dr. Mendez), Psych Therapist (JOHANNA Ramos), Other ([place], [facility]) Patient Problems 1. Discharge planning 2. Medication compliance 3. Knowledge deficit 4. Lack of coping skills Progress Toward Goals Provider Input: Dr. Mendez reports the patient is waiting for appropriate placement. She remains compliant with medications and no behavioral disturbance. Psych Therapist Input: Counselor reported the patient complained of left hip pain that ran down to her feet. She offers no complaints of side effects from medications. Counselor will continue to search for appropriate placement. Documentation Scribe: JOHANNA Ramos Date Resolved: Apr 20, 2017 Samantha Soliz Apr 20, 2017 16:30
[2017-04-20 18:00] VITALS: BP 127/64; PULSE 97; RESP 17; TEMP 96.8; O2SAT 98
[2017-04-20] MEDS: ATORVASTATIN 80 MG TAB PO SCH (20:55)
[2017-04-20] MEDS: PANTOPRAZOLE SOD 40 MG DELAYED RELEASE TAB PO SCH (20:55)
[2017-04-20] MEDS: traZODone HCL 50 MG TAB PO PRN (20:55)
[2017-04-20] MEDS: INSULIN DETEMIR 100 UNITS/ML VIAL SQ SCH (21:27)
[2017-04-21 05:44] VITALS: BP 127/62; PULSE 77; RESP 16; TEMP 97.8; O2SAT 96
[2017-04-21] MEDS: NICOTINE 21 MG/24 HR PATCH T-DERMAL SCH (09:00)
[2017-04-21] MEDS: ISOSORBIDE MONONITRATE 20 MG TAB PO SCH (09:11)
[2017-04-21] MEDS: LISINOPRIL 10 MG TAB PO SCH (09:11)
[2017-04-21] MEDS: HALOPERIDOL LACTATE ORAL CONC 10 MG/5 ML CUP PO SCH ×2 (09:11→20:28)
[2017-04-21] MEDS: CHOLECALCIFEROL (VIT D3) 1000 UNIT TAB PO SCH (09:11)
[2017-04-21] MEDS: FERROUS SULFATE 325 MG (65 MG ELEMENTAL IRON) TAB PO SCH (09:11)
--- NOTE | 2017-04-21 13:21 | HHI.PYPN ---
Subjective Remarks Patient seen in day room with nurse Tremayne, chart review, patient compliant medications. She remains pleasantly confused and disoriented. With no behavioral problems. Patient remains somewhat problematic Review of Systems Except as stated in HPI: all other systems reviewed are Neg Objective Alert: Yes [place]: Person, Place Mood: Calm Affect: Restricted Memory Intact: Comment (impaired) Hallucinations: Other (no AVH) Delusions: No Delusion Type: Other Suicidal: Ideation (no SI) Homicidal: Ideation (no HI) Insight/Judgment Very poor Vitals/IOs Vital Signs Date Time Temp Pulse Resp B/P Pulse Ox O2 Delivery O2 Flow Rate FiO2 04/21/17 05:44 97.8 77 16 127/62 96 Intake and Output 04/20/17 04/20/17 04/21/17 08:00 16:00 00:00 Intake Total 0 ml 360 ml 720 ml Balance 0 ml 360 ml 720 ml Assessment & Plan Problem List: (1) Dementia associated with other underlying disease with behavioral disturbance ICD Code: F02.81 Assessment & Plan Estimated LOS: days patient continues demented confused though pleasant with no behavioral issues, compliant medications Justification for Cont. Inpt. At this time patient will decompensate placed in the lower level of care Discharge Planning To be determined Request HC Surrog/Guard Advoc?: Yes Mayito Mendez MD Apr 21, 2017 13:21
[2017-04-21 17:59] VITALS: BP 127/61; PULSE 100; RESP 17; TEMP 97.6; O2SAT 98
[2017-04-21] MEDS: INSULIN DETEMIR 100 UNITS/ML VIAL SQ SCH (20:29)
[2017-04-21] MEDS: traZODone HCL 50 MG TAB PO PRN (20:30)
[2017-04-21] MEDS: ATORVASTATIN 80 MG TAB PO SCH (20:31)
[2017-04-21] MEDS: PANTOPRAZOLE SOD 40 MG DELAYED RELEASE TAB PO SCH (20:31)
[2017-04-22] MEDS: CYCLOBENZAPRINE HCL 10 MG TAB PO PRN (01:10)
[2017-04-22] MEDS: LORazepam 0.5 MG TAB PO PRN (01:10)
[2017-04-22 05:27] VITALS: BP 170/72; PULSE 74; RESP 18; TEMP 97; O2SAT 96
[2017-04-22] MEDS: LISINOPRIL 10 MG TAB PO SCH (09:00)
[2017-04-22] MEDS: CHOLECALCIFEROL (VIT D3) 1000 UNIT TAB PO SCH (09:00)
[2017-04-22] MEDS: ISOSORBIDE MONONITRATE 20 MG TAB PO SCH (09:00)
[2017-04-22] MEDS: HALOPERIDOL LACTATE ORAL CONC 10 MG/5 ML CUP PO SCH ×2 (09:00→20:02)
[2017-04-22] MEDS: NICOTINE 21 MG/24 HR PATCH T-DERMAL SCH (09:00)
[2017-04-22] MEDS: FERROUS SULFATE 325 MG (65 MG ELEMENTAL IRON) TAB PO SCH (09:00)
--- NOTE | 2017-04-22 09:31 | HHI.PYPN ---
Subjective Remarks Patient seen in day room with nurse Steph, patient continues calm pleasant, pleasantly confused and disoriented. At this time no behavioral problems compliant medications. Review of Systems Except as stated in HPI: all other systems reviewed are Neg Objective Alert: Yes [place]: Person, Place Mood: Calm Affect: Restricted Memory Intact: Comment (impaired) Hallucinations: Other (no AVH) Delusions: No Delusion Type: Other Suicidal: Ideation (no SI) Homicidal: Ideation (no HI) Insight/Judgment Very poor Vitals/IOs Vital Signs Date Time Temp Pulse Resp B/P Pulse Ox O2 Delivery O2 Flow Rate FiO2 04/22/17 05:27 97.0 74 18 170/72 96 Intake and Output 04/21/17 04/21/17 04/22/17 08:00 16:00 00:00 Intake Total 480 ml Balance 480 ml Assessment & Plan Problem List: (1) Dementia associated with other underlying disease with behavioral disturbance ICD Code: F02.81 Assessment & Plan Estimated LOS: days patient continues confused and demented, but no behavior problems. Compliant medications Justification for Cont. Inpt. At this time patient will decompensate and placed on the lower level of care Discharge Planning To be determined Request HC Surrog/Guard Advoc?: Yes Mayito Mendez MD Apr 22, 2017 09:31
[2017-04-22 12:13] VITALS: BP 126/78; PULSE 90; RESP 18; TEMP 97.7
[2017-04-22 19:42] VITALS: BP 143/74; PULSE 91; RESP 19; TEMP 99.1
[2017-04-22] MEDS: PANTOPRAZOLE SOD 40 MG DELAYED RELEASE TAB PO SCH (20:02)
[2017-04-22] MEDS: INSULIN DETEMIR 100 UNITS/ML VIAL SQ SCH (20:02)
[2017-04-22] MEDS: ATORVASTATIN 80 MG TAB PO SCH (20:02)
[2017-04-23 05:00] VITALS: BP 154/74; PULSE 63; RESP 16; TEMP 97.5; O2SAT 99
[2017-04-23] MEDS: ISOSORBIDE MONONITRATE 20 MG TAB PO SCH (09:00)
[2017-04-23] MEDS: LISINOPRIL 10 MG TAB PO SCH (09:00)
[2017-04-23] MEDS: CHOLECALCIFEROL (VIT D3) 1000 UNIT TAB PO SCH (09:00)
[2017-04-23] MEDS: FERROUS SULFATE 325 MG (65 MG ELEMENTAL IRON) TAB PO SCH (09:00)
[2017-04-23] MEDS: NICOTINE 21 MG/24 HR PATCH T-DERMAL SCH (09:00)
[2017-04-23] MEDS: HALOPERIDOL LACTATE ORAL CONC 10 MG/5 ML CUP PO SCH ×2 (09:00→20:41)
--- NOTE | 2017-04-23 11:07 | HHI.PYPN ---
Subjective Remarks Patient seen in her room with nurse Sophie, chart reviewed, patient compliant medications. Patient continues confused demented though she did recognize me. She does remain pleasant with no significant behavioral problems For now continue treatment Review of Systems Except as stated in HPI: all other systems reviewed are Neg Objective Alert: Yes [place]: Person, Place Mood: Calm Affect: Restricted Memory Intact: Comment (impaired) Hallucinations: Other (no AVH) Delusions: No Delusion Type: Other Suicidal: Ideation (no SI) Homicidal: Ideation (no HI) Insight/Judgment Very poor Vitals/IOs Vital Signs Date Time Temp Pulse Resp B/P Pulse Ox O2 Delivery O2 Flow Rate FiO2 04/23/17 05:00 97.5 63 16 154/74 99 Intake and Output 04/22/17 04/22/17 04/23/17 08:00 16:00 00:00 Intake Total 240 ml 240 ml 600 ml Balance 240 ml 240 ml 600 ml Assessment & Plan Problem List: (1) Dementia associated with other underlying disease with behavioral disturbance ICD Code: F02.81 Assessment & Plan Estimated LOS: days patient continues confused and demented, no significant behavioral problems. For now continue treatment Justification for Cont. Inpt. At this time patient will decompensate if placed in a lower level of care Discharge Planning To be determined Request HC Surrog/Guard Advoc?: Yes Mayito Mendez MD Apr 23, 2017 11:07
--- NOTE | 2017-04-23 14:41 | PD.TTN ---
Present for Treatment Team Treatment Team Staff: Provider (Dr. Saini), Nurse, Psych Therapist (Samantha Soliz), Other Clinician (Alicia, rec. therapy), Ancillary Staff Patient Problems 1. Discharge planning 2. Medication compliance 3. Knowledge deficit 4. Lack of coping skills Progress Toward Goals Provider Input: Dr. saini reports the patient has remained much calmer over the past few days, is compliant with medications, and has not been a behavioral issue. Psych Therapist Input: Counselor reported the patient remains calm and pleasant, oriented to self, and lacks insight into her mental illness. Patient appears to be coping cppropriately. Other Clinican Input: Alicia from rec. therapy reported the patient is not attending groups. Documentation Scribe: JOHANNA Ramos Date Resolved: Apr 22, 2017 Samantha Soliz Apr 23, 2017 14:41
[2017-04-23] MEDS: ACETAMINOPHEN 325 MG TAB PO PRN (16:30)
[2017-04-23 18:39] VITALS: BP 125/85; PULSE 68; RESP 20; TEMP 98; O2SAT 100
[2017-04-23] MEDS: ATORVASTATIN 80 MG TAB PO SCH (20:41)
[2017-04-23] MEDS: PANTOPRAZOLE SOD 40 MG DELAYED RELEASE TAB PO SCH (20:41)
[2017-04-23] MEDS: INSULIN DETEMIR 100 UNITS/ML VIAL SQ SCH (21:13)
[2017-04-24 05:00] VITALS: BP 122/62; PULSE 82; TEMP 96.3; O2SAT 97
[2017-04-24] MEDS: HALOPERIDOL LACTATE ORAL CONC 10 MG/5 ML CUP PO SCH ×2 (08:59→20:38)
[2017-04-24] MEDS: LISINOPRIL 10 MG TAB PO SCH (09:00)
[2017-04-24] MEDS: FERROUS SULFATE 325 MG (65 MG ELEMENTAL IRON) TAB PO SCH (09:00)
[2017-04-24] MEDS: ISOSORBIDE MONONITRATE 20 MG TAB PO SCH (09:01)
[2017-04-24] MEDS: CHOLECALCIFEROL (VIT D3) 1000 UNIT TAB PO SCH (09:01)
[2017-04-24] MEDS: NICOTINE 21 MG/24 HR PATCH T-DERMAL SCH (09:12)
--- NOTE | 2017-04-24 11:19 | HHI.PYPN ---
Subjective Remarks Patient seen in her room with nurse Mina, patient laying quietly in bed. Chart reviewed. Patient compliant medications. Patient continues calm pleasant though diffusely confused and disoriented. Review of Systems Except as stated in HPI: all other systems reviewed are Neg Objective Alert: Yes [place]: Person, Place Mood: Calm Affect: Restricted Memory Intact: Comment (impaired) Hallucinations: Other (no AVH) Delusions: No Delusion Type: Other (none) Suicidal: Ideation (no SI) Homicidal: Ideation (no HI) Insight/Judgment Very poor Vitals/IOs Vital Signs Date Time Temp Pulse Resp B/P Pulse Ox O2 Delivery O2 Flow Rate FiO2 04/24/17 05:00 96.3 82 122/62 97 04/23/17 18:39 20 Intake and Output 04/23/17 04/23/17 04/24/17 08:00 16:00 00:00 Intake Total 1920 ml Balance 1920 ml Assessment & Plan Problem List: (1) Dementia associated with other underlying disease with behavioral disturbance ICD Code: F02.81 Assessment & Plan Estimated LOS: days patient continues demented and confused though pleasant with no significant behavioral issues noted Justification for Cont. Inpt. At this time patient will decompensate and placed in the lower level of care Discharge Planning To be determined Request HC Surrog/Guard Advoc?: Yes Mayito Mendez MD Apr 24, 2017 11:19
[2017-04-24 18:00] VITALS: BP 122/58; PULSE 90; RESP 20; TEMP 98.2; O2SAT 98
[2017-04-24] MEDS: PANTOPRAZOLE SOD 40 MG DELAYED RELEASE TAB PO SCH (20:38)
[2017-04-24] MEDS: ATORVASTATIN 80 MG TAB PO SCH (20:38)
[2017-04-24] MEDS: INSULIN DETEMIR 100 UNITS/ML VIAL SQ SCH (20:55)
[2017-04-25] MEDS: NICOTINE 21 MG/24 HR PATCH T-DERMAL SCH (09:00)
[2017-04-25] MEDS: ISOSORBIDE MONONITRATE 20 MG TAB PO SCH (09:55)
[2017-04-25] MEDS: FERROUS SULFATE 325 MG (65 MG ELEMENTAL IRON) TAB PO SCH (09:55)
[2017-04-25] MEDS: CHOLECALCIFEROL (VIT D3) 1000 UNIT TAB PO SCH (09:55)
[2017-04-25] MEDS: LISINOPRIL 10 MG TAB PO SCH (09:55)
[2017-04-25] MEDS: HALOPERIDOL LACTATE ORAL CONC 10 MG/5 ML CUP PO SCH ×2 (09:55→22:05)
--- NOTE | 2017-04-25 13:16 | HHI.PYPN ---
Subjective Remarks Patient was seen and case discussed with nursing. Patient is alert and oriented 1. Poor eye contact and appears distracted during the interview. Processes disorganized. Also delayed. Grossly confused. Compliant with her medications and behaving well on the unit Objective Alert: Yes [place]: Person Mood: Calm Affect: Blunted Memory Intact: Comment (impaired) Hallucinations: Other (no AVH) Delusions: No Delusion Type: Other (none) Suicidal: Ideation (no SI) Homicidal: Ideation (no HI) Insight/Judgment Poor Vitals/IOs Vital Signs Date Time Temp Pulse Resp B/P Pulse Ox O2 Delivery O2 Flow Rate FiO2 04/24/17 18:00 98.2 90 20 122/58 98 Intake and Output 04/24/17 04/24/17 04/25/17 08:00 16:00 00:00 Intake Total 0 ml 240 ml 600 ml Balance 0 ml 240 ml 600 ml Assessment & Plan Problem List: (1) Dementia associated with other underlying disease with behavioral disturbance ICD Code: F02.81 Assessment & Plan Continue current treatment plan Justification for Cont. Inpt. Patient will decompensate in a less restrictive setting Request HC Surrog/Guard Advoc?: Yes Fabricio Roy DO Apr 25, 2017 13:16
[2017-04-25 18:00] VITALS: BP 161/76; PULSE 91; RESP 20; TEMP 98.5; O2SAT 97
[2017-04-25] MEDS: INSULIN DETEMIR 100 UNITS/ML VIAL SQ SCH (21:00)
[2017-04-25] MEDS: PANTOPRAZOLE SOD 40 MG DELAYED RELEASE TAB PO SCH (22:06)
[2017-04-25] MEDS: ATORVASTATIN 80 MG TAB PO SCH (22:06)
[2017-04-26 06:30] VITALS: BP 180/83; PULSE 89; RESP 17; TEMP 99; O2SAT 97
[2017-04-26 08:09] VITALS: BP 172/86; PULSE 72
[2017-04-26] MEDS: HALOPERIDOL LACTATE ORAL CONC 10 MG/5 ML CUP PO SCH ×3 (08:53→21:00)
[2017-04-26] MEDS: ISOSORBIDE MONONITRATE 20 MG TAB PO SCH (08:53)
[2017-04-26] MEDS: NICOTINE 21 MG/24 HR PATCH T-DERMAL SCH (08:54)
[2017-04-26] MEDS: LISINOPRIL 10 MG TAB PO SCH (08:54)
[2017-04-26] MEDS: FERROUS SULFATE 325 MG (65 MG ELEMENTAL IRON) TAB PO SCH (08:54)
[2017-04-26] MEDS: CHOLECALCIFEROL (VIT D3) 1000 UNIT TAB PO SCH (08:54)
[2017-04-26 10:42] VITALS: BP 140/77; PULSE 87
--- NOTE | 2017-04-26 13:25 | HHI.PYPN ---
Subjective Remarks Patient was seen and case discussed with nursing. Patient is alert and oriented 1. Pleasant and cooperative with exam. Denies auditory visual hallucinations. Blood pressure was elevated this morning and came down after administration of her medications. We'll increase her dose to lisinopril 20 mg tomorrow do vitals every 6 hours. Objective Alert: Yes [place]: Person Mood: Calm Affect: Flat Memory Intact: Comment (impaired) Hallucinations: Other (no AVH) Delusions: No Delusion Type: Other (none) Suicidal: Ideation (no SI) Homicidal: Ideation (no HI) Insight/Judgment Poor Vitals/IOs Vital Signs Date Time Temp Pulse Resp B/P Pulse Ox O2 Delivery O2 Flow Rate FiO2 04/26/17 10:42 87 140/77 04/26/17 06:30 99.0 17 97 Intake and Output 04/25/17 04/25/17 04/26/17 08:00 16:00 00:00 Intake Total 0 ml 240 ml 720 ml Balance 0 ml 240 ml 720 ml Assessment & Plan Problem List: (1) Dementia associated with other underlying disease with behavioral disturbance ICD Code: F02.81 Assessment & Plan Continue current treatment plan Justification for Cont. Inpt. Patient will decompensate in a less restrictive setting Request HC Surrog/Guard Advoc?: Yes Fabricio Roy DO Apr 26, 2017 13:25
[2017-04-26 20:00] VITALS: BP 117/60; PULSE 85; RESP 15; TEMP 96.7
[2017-04-26] MEDS: PANTOPRAZOLE SOD 40 MG DELAYED RELEASE TAB PO SCH ×2 (20:51→21:00)
[2017-04-26] MEDS: ATORVASTATIN 80 MG TAB PO SCH ×2 (20:51→21:00)
[2017-04-26] MEDS: INSULIN DETEMIR 100 UNITS/ML VIAL SQ SCH (20:54)
[2017-04-27 05:50] VITALS: BP 155/69; PULSE 83; RESP 17; TEMP 97.9; O2SAT 99
[2017-04-27] MEDS: NICOTINE 21 MG/24 HR PATCH T-DERMAL SCH (09:00)
[2017-04-27] MEDS: ISOSORBIDE MONONITRATE 20 MG TAB PO SCH (09:04)
[2017-04-27] MEDS: CHOLECALCIFEROL (VIT D3) 1000 UNIT TAB PO SCH (09:04)
[2017-04-27] MEDS: FERROUS SULFATE 325 MG (65 MG ELEMENTAL IRON) TAB PO SCH (09:04)
[2017-04-27] MEDS: LISINOPRIL 20 MG TAB PO SCH (09:05)
[2017-04-27] MEDS: HALOPERIDOL LACTATE ORAL CONC 10 MG/5 ML CUP PO SCH ×2 (09:05→21:06)
--- NOTE | 2017-04-27 11:42 | PD.TTN ---
Present for Treatment Team Treatment Team Staff: Provider (Dr. Mendez), Psych Therapist (Samantha Soliz), Other Clinician (rec. [place] [facility]) Patient Problems 1. Discharge planning 2. Medication compliance 3. Knowledge deficit 4. Lack of coping skills Progress Toward Goals Provider Input: Dr. Mendez reported the patient's status remains unchanged. Psych Therapist Input: Counselor reported the patient remains alert and oriented to person at least. She is compliant with medications and without behavioral incidents. Placement remains an issue as a result of patient's reported aggressive behaviors towards peers and staff at her previous [facility] facility. Other Clinican Input: rec. [place] [facility], reported the patient is withdrawn and refuses to participate in group activities. Documentation Scribe: JOHANNA Ramos Date Resolved: Apr 27, 2017 Samantha Soliz Apr 27, 2017 11:42
--- NOTE | 2017-04-27 13:57 | HHI.PYPN ---
Subjective Remarks Patient seen in day room with nurse Marcelino, patient slipping down in Anabelle chair almost falling out of it need to be repositioned by staff. Otherwise patient continues diffusely confused and demented, somewhat more irritable than prior days, she is not is pleasant her from me at this time. Compliant medications. For now continue treatment Review of Systems Except as stated in HPI: all other systems reviewed are Neg Objective Alert: Yes [place]: Person Mood: Calm Affect: Flat Memory Intact: Comment (impaired) Hallucinations: Other (no AVH) Delusions: No Delusion Type: Other (none) Suicidal: Ideation (no SI) Homicidal: Ideation (no HI) Insight/Judgment Very poor Vitals/IOs Vital Signs Date Time Temp Pulse Resp B/P Pulse Ox O2 Delivery O2 Flow Rate FiO2 04/27/17 05:50 97.9 83 17 155/69 99 Intake and Output 04/26/17 04/26/17 04/27/17 08:00 16:00 00:00 Intake Total 1680 ml 720 ml Balance 1680 ml 720 ml Assessment & Plan Problem List: (1) Dementia associated with other underlying disease with behavioral disturbance ICD Code: F02.81 Assessment & Plan Estimated LOS: days patient continues diffusely confused disoriented, thesignificant behavior problems patient does need significant assistance with all her activities Justification for Cont. Inpt. At this time patient will decompensate and placed in a lower level of care Discharge Planning To be determined Request HC Surrog/Guard Advoc?: Yes Mayito Mendez MD Apr 27, 2017 13:57
[2017-04-27] MEDS: PANTOPRAZOLE SOD 40 MG DELAYED RELEASE TAB PO SCH (21:06)
[2017-04-27] MEDS: ATORVASTATIN 80 MG TAB PO SCH (21:06)
[2017-04-27] MEDS: INSULIN DETEMIR 100 UNITS/ML VIAL SQ SCH (21:12)
[2017-04-28 01:10] VITALS: BP 155/73; PULSE 88; RESP 18; TEMP 98.3; O2SAT 98
[2017-04-28 06:10] VITALS: BP 152/72; PULSE 82; RESP 17; TEMP 98.4; O2SAT 97
[2017-04-28] MEDS: NICOTINE 21 MG/24 HR PATCH T-DERMAL SCH (09:00)
[2017-04-28] MEDS: LISINOPRIL 20 MG TAB PO SCH (09:04)
[2017-04-28] MEDS: HALOPERIDOL LACTATE ORAL CONC 10 MG/5 ML CUP PO SCH ×2 (09:04→21:00)
[2017-04-28] MEDS: CHOLECALCIFEROL (VIT D3) 1000 UNIT TAB PO SCH (09:04)
[2017-04-28] MEDS: FERROUS SULFATE 325 MG (65 MG ELEMENTAL IRON) TAB PO SCH (09:04)
[2017-04-28] MEDS: ISOSORBIDE MONONITRATE 20 MG TAB PO SCH (09:05)
--- NOTE | 2017-04-28 14:33 | HHI.PYPN ---
Subjective Remarks Patient seen in her room with nurse Racheal. Chart reviewed. Patient patient continues pleasant with me, somewhat more alert some increase affect and energy. She does remain diffusely confused. Compliant medication Review of Systems Except as stated in HPI: all other systems reviewed are Neg Objective Alert: Yes [place]: Person Mood: Calm Affect: Flat Memory Intact: Comment (impaired) Hallucinations: Other (no AVH) Delusions: No Delusion Type: Other (none) Suicidal: Ideation (no SI) Homicidal: Ideation (no HI) Insight/Judgment Very poor Vitals/IOs Vital Signs Date Time Temp Pulse Resp B/P Pulse Ox O2 Delivery O2 Flow Rate FiO2 04/28/17 06:10 98.4 82 17 152/72 97 Intake and Output 04/27/17 04/27/17 04/28/17 08:00 16:00 00:00 Intake Total 120 ml 840 ml Balance 120 ml 840 ml Assessment & Plan Problem List: (1) Dementia associated with other underlying disease with behavioral disturbance ICD Code: F02.81 Assessment & Plan Estimated LOS: days patient continues confusion dementing, moles somewhat more active today. Continues pleasant without behavioral issues Justification for Cont. Inpt. At this time patient will decompensate a placed a lower level of care Discharge Planning To be determined Request HC Surrog/Guard Advoc?: Yes Mayito Mendez MD Apr 28, 2017 14:33
[2017-04-28] MEDS: ACETAMINOPHEN 325 MG TAB PO PRN ×2 (16:47→21:00)
[2017-04-28 17:29] VITALS: BP 152/78; PULSE 86; RESP 16; TEMP 98.6; O2SAT 97
[2017-04-28] MEDS: PANTOPRAZOLE SOD 40 MG DELAYED RELEASE TAB PO SCH (21:00)
[2017-04-28] MEDS: INSULIN DETEMIR 100 UNITS/ML VIAL SQ SCH (21:00)
[2017-04-28] MEDS: ATORVASTATIN 80 MG TAB PO SCH (21:00)
[2017-04-28] MEDS: LORazepam 0.5 MG TAB PO PRN (21:00)
[2017-04-29 05:14] VITALS: BP 154/78; PULSE 77; RESP 18; TEMP 97.7; O2SAT 95
[2017-04-29] MEDS: NICOTINE 21 MG/24 HR PATCH T-DERMAL SCH (08:34)
[2017-04-29] MEDS: FERROUS SULFATE 325 MG (65 MG ELEMENTAL IRON) TAB PO SCH (08:46)
[2017-04-29] MEDS: CHOLECALCIFEROL (VIT D3) 1000 UNIT TAB PO SCH (08:47)
[2017-04-29] MEDS: LISINOPRIL 20 MG TAB PO SCH (08:47)
[2017-04-29] MEDS: HALOPERIDOL LACTATE ORAL CONC 10 MG/5 ML CUP PO SCH ×2 (08:47→20:54)
[2017-04-29] MEDS: ISOSORBIDE MONONITRATE 20 MG TAB PO SCH (08:47)
[2017-04-29 13:52] VITALS: BP 150/82; PULSE 70
--- NOTE | 2017-04-29 16:04 | HHI.PYPN ---
Subjective Remarks Patient seen in her room with nurse Sophie patient calm cooperative continues pleasantly confused. Compliant medications. For now continue treatment Review of Systems Except as stated in HPI: all other systems reviewed are Neg Objective Alert: Yes [place]: Person Mood: Calm Affect: Flat Memory Intact: Comment (impaired) Hallucinations: Other (no AVH) Delusions: No Delusion Type: Other (none) Suicidal: Ideation (no SI) Homicidal: Ideation (no HI) Insight/Judgment Very poor Vitals/IOs Vital Signs Date Time Temp Pulse Resp B/P Pulse Ox O2 Delivery O2 Flow Rate FiO2 04/29/17 13:52 70 150/82 04/29/17 05:14 97.7 18 95 Intake and Output 04/28/17 04/28/17 04/28/17 07:59 15:59 23:59 Intake Total 720 ml Balance 720 ml Assessment & Plan Problem List: (1) Dementia associated with other underlying disease with behavioral disturbance ICD Code: F02.81 Assessment & Plan Estimated LOS: days patient continues confused and demented, though no behavioral problems. For now continue treatment Justification for Cont. Inpt. At this time patient decompensate the placed a lower level of care Discharge Planning To be determined Request HC Surrog/Guard Advoc?: Yes Mayito Mendez MD Apr 29, 2017 16:03
[2017-04-29 18:00] VITALS: BP 137/60; PULSE 77; RESP 18; TEMP 98.2; O2SAT 95
[2017-04-29] MEDS: ATORVASTATIN 80 MG TAB PO SCH (20:54)
[2017-04-29] MEDS: PANTOPRAZOLE SOD 40 MG DELAYED RELEASE TAB PO SCH (20:54)
[2017-04-29] MEDS: INSULIN DETEMIR 100 UNITS/ML VIAL SQ SCH (21:00)
[2017-04-30 05:43] VITALS: BP 157/74; PULSE 82; TEMP 97.6; O2SAT 99
[2017-04-30] MEDS: NICOTINE 21 MG/24 HR PATCH T-DERMAL SCH (08:24)
[2017-04-30] MEDS: CHOLECALCIFEROL (VIT D3) 1000 UNIT TAB PO SCH (08:50)
[2017-04-30] MEDS: HALOPERIDOL LACTATE ORAL CONC 10 MG/5 ML CUP PO SCH ×2 (08:50→21:07)
[2017-04-30] MEDS: LISINOPRIL 20 MG TAB PO SCH (08:50)
[2017-04-30] MEDS: FERROUS SULFATE 325 MG (65 MG ELEMENTAL IRON) TAB PO SCH (08:50)
[2017-04-30] MEDS: ISOSORBIDE MONONITRATE 20 MG TAB PO SCH (08:50)
[2017-04-30 13:00] VITALS: BP 128/70; PULSE 85
--- NOTE | 2017-04-30 15:36 | HHI.PYPN ---
Subjective Remarks Patient seen on unit with nurse Sophie, chart reviewed, patient compliant medication. Patient continues somewhat pleasantly confused and disoriented. No significant behavioral problems. Continue to work on placement issues Review of Systems Except as stated in HPI: all other systems reviewed are Neg Objective Alert: Yes [place]: Person Mood: Calm Affect: Flat Memory Intact: Comment (impaired) Hallucinations: Other (no AVH) Delusions: No Delusion Type: Other (none) Suicidal: Ideation (no SI) Homicidal: Ideation (no HI) Insight/Judgment Very poor Vitals/IOs Vital Signs Date Time Temp Pulse Resp B/P Pulse Ox O2 Delivery O2 Flow Rate FiO2 04/30/17 13:00 85 128/70 04/30/17 05:43 97.6 99 04/29/17 18:00 18 Intake and Output 04/29/17 04/29/17 04/30/17 08:00 16:00 00:00 Intake Total 120 ml 120 ml 240 ml Balance 120 ml 120 ml 240 ml Assessment & Plan Problem List: (1) Dementia associated with other underlying disease with behavioral disturbance ICD Code: F02.81 Assessment & Plan Estimated LOS: days patient continues confused and demented, but no significant pain or problems at this time. Compliant medications. Justification for Cont. Inpt. This time patient will decompensate if placed in a lower level of care Discharge Planning To be determined Request HC Surrog/Guard Advoc?: Yes Mayito Mendez MD Apr 30, 2017 15:36
[2017-04-30] MEDS: ATORVASTATIN 80 MG TAB PO SCH (21:07)
[2017-04-30] MEDS: PANTOPRAZOLE SOD 40 MG DELAYED RELEASE TAB PO SCH (21:07)
[2017-04-30] MEDS: INSULIN DETEMIR 100 UNITS/ML VIAL SQ SCH (21:09)
[2017-05-01 06:16] VITALS: BP 147/83; PULSE 80; RESP 19; TEMP 97.1; O2SAT 97
[2017-05-01] MEDS: NICOTINE 21 MG/24 HR PATCH T-DERMAL SCH (09:00)
[2017-05-01] MEDS: HALOPERIDOL LACTATE ORAL CONC 10 MG/5 ML CUP PO SCH ×2 (09:35→21:00)
[2017-05-01] MEDS: CHOLECALCIFEROL (VIT D3) 1000 UNIT TAB PO SCH (09:35)
[2017-05-01] MEDS: FERROUS SULFATE 325 MG (65 MG ELEMENTAL IRON) TAB PO SCH (09:35)
[2017-05-01] MEDS: ISOSORBIDE MONONITRATE 20 MG TAB PO SCH (09:35)
[2017-05-01] MEDS: LISINOPRIL 20 MG TAB PO SCH (09:35)
[2017-05-01 13:01] VITALS: BP 153/82; PULSE 95; RESP 17; TEMP 97.7; O2SAT 97
--- NOTE | 2017-05-01 14:29 | HHI.PYPN ---
Subjective Remarks Patient seen in [facility] in Anabelle chair with nurse Steph, chart reviewed, patient compliant medications. Patient continues no significant behavioral problems, she is calm pleasant, pleasantly confused, placement continues to be problematic Objective Alert: Yes [place]: Person Mood: Calm Affect: Flat Memory Intact: Comment (impaired) Hallucinations: Other (no AVH) Delusions: No Delusion Type: Other (none) Suicidal: Ideation (no SI) Homicidal: Ideation (no HI) Insight/Judgment Poor Vitals/IOs Vital Signs Date Time Temp Pulse Resp B/P Pulse Ox O2 Delivery O2 Flow Rate FiO2 05/01/17 06:16 97.1 80 19 147/83 97 Intake and Output 04/30/17 04/30/17 05/01/17 08:00 16:00 00:00 Intake Total 240 ml 960 ml Balance 240 ml 960 ml Assessment & Plan Problem List: (1) Dementia associated with other underlying disease with behavioral disturbance ICD Code: F02.81 Assessment & Plan Estimated LOS: days she continues demented and confused though no significant behavioral problems. For now continue treatment. Placement remains problematic Justification for Cont. Inpt. At this time patient will decompensate if placed in the lower level of care Discharge Planning To be determined Request HC Surrog/Guard Advoc?: Yes Mayito Mendez MD May 01, 2017 14:29
[2017-05-01] MEDS: INSULIN DETEMIR 100 UNITS/ML VIAL SQ SCH (21:00)
[2017-05-01] MEDS: ATORVASTATIN 80 MG TAB PO SCH (21:01)
[2017-05-01] MEDS: PANTOPRAZOLE SOD 40 MG DELAYED RELEASE TAB PO SCH (21:01)
[2017-05-02 05:56] VITALS: BP 152/73; PULSE 104; RESP 17; TEMP 97.7; O2SAT 96
[2017-05-02] MEDS: NICOTINE 21 MG/24 HR PATCH T-DERMAL SCH (08:33)
[2017-05-02] MEDS: CHOLECALCIFEROL (VIT D3) 1000 UNIT TAB PO SCH (08:53)
[2017-05-02] MEDS: HALOPERIDOL LACTATE ORAL CONC 10 MG/5 ML CUP PO SCH (08:53)
[2017-05-02] MEDS: FERROUS SULFATE 325 MG (65 MG ELEMENTAL IRON) TAB PO SCH (08:53)
[2017-05-02] MEDS: ISOSORBIDE MONONITRATE 20 MG TAB PO SCH (08:53)
[2017-05-02] MEDS: LISINOPRIL 20 MG TAB PO SCH (08:54)
--- NOTE | 2017-05-02 13:22 | HHI.PYPN ---
Subjective Remarks Patient was seen and case discussed with nursing. Patient is pleasant and cooperative with exam. Alert and oriented 1. Thought processes delayed with some thought blocking. Blunted affect. Behaving well on the unit and compliant with her medications Objective Alert: Yes [place]: Person Mood: Calm Affect: Blunted Memory Intact: Comment (impaired) Hallucinations: Other (no AVH) Delusions: No Delusion Type: Other (none) Suicidal: Ideation (no SI) Homicidal: Ideation (no HI) Insight/Judgment Poor Vitals/IOs Vital Signs Date Time Temp Pulse Resp B/P Pulse Ox O2 Delivery O2 Flow Rate FiO2 05/02/17 05:56 97.7 104 17 152/73 96 Intake and Output 05/01/17 05/01/17 05/02/17 08:00 16:00 00:00 Intake Total 240 ml 960 ml 240 ml Balance 240 ml 960 ml 240 ml Assessment & Plan Problem List: (1) Dementia associated with other underlying disease with behavioral disturbance ICD Code: F02.81 Assessment & Plan Continue current treatment plan Justification for Cont. Inpt. Patient will decompensate in a less restrictive setting Request HC Surrog/Guard Advoc?: Yes Fabricio Roy DO May 02, 2017 13:22
[2017-05-02] MEDS: cloNIDine HCL 0.1 MG TAB PO PRN (17:17)
[2017-05-02 18:16] VITALS: BP 164/92; PULSE 91; RESP 16; TEMP 98.3; O2SAT 94
[2017-05-02] MEDS: INSULIN DETEMIR 100 UNITS/ML VIAL SQ SCH (21:00)
[2017-05-02] MEDS: PANTOPRAZOLE SOD 40 MG DELAYED RELEASE TAB PO SCH (21:03)
[2017-05-02] MEDS: ATORVASTATIN 80 MG TAB PO SCH (21:03)
[2017-05-02] MEDS: DOCUSATE SODIUM 50 MG/SENNA 8.6 MG TAB PO PRN (21:03)
[2017-05-02] MEDS: ACETAMINOPHEN 325 MG TAB PO PRN (21:04)
[2017-05-03] MEDS: HALOPERIDOL LACTATE ORAL CONC 10 MG/5 ML CUP PO SCH ×3 (00:04→20:43)
[2017-05-03 06:44] VITALS: BP 134/66; PULSE 81; RESP 16; TEMP 97.4; O2SAT 97
[2017-05-03] MEDS: ISOSORBIDE MONONITRATE 20 MG TAB PO SCH (08:10)
[2017-05-03] MEDS: LISINOPRIL 20 MG TAB PO SCH (08:10)
[2017-05-03] MEDS: FERROUS SULFATE 325 MG (65 MG ELEMENTAL IRON) TAB PO SCH (08:10)
[2017-05-03] MEDS: CHOLECALCIFEROL (VIT D3) 1000 UNIT TAB PO SCH (08:11)
[2017-05-03] MEDS: NICOTINE 21 MG/24 HR PATCH T-DERMAL SCH (08:38)
--- NOTE | 2017-05-03 13:22 | HHI.PYPN ---
Subjective Remarks Patient was seen and case discussed with nursing. Patient appears internally preoccupied. Flat affect, staring into space. One food is placed in front of her she needs prompting to eat per nursing. Denies depressed mood. Denies auditory visual hallucinations. No delusions elicited. Denies suicidal ideation intent or plan. Compliant with her medications Objective Alert: Yes [place]: Person Mood: Calm Affect: Blunted Memory Intact: Comment (impaired) Hallucinations: Other (no AVH) Delusions: No Delusion Type: Other (none) Suicidal: Ideation (no SI) Homicidal: Ideation (no HI) Insight/Judgment Poor Vitals/IOs Vital Signs Date Time Temp Pulse Resp B/P Pulse Ox O2 Delivery O2 Flow Rate FiO2 05/03/17 06:44 97.4 81 16 134/66 97 Intake and Output 05/02/17 05/02/17 05/03/17 08:00 16:00 00:00 Intake Total 240 ml 360 ml Output Total 1 ml Balance 239 ml 360 ml Assessment & Plan Problem List: (1) Dementia associated with other underlying disease with behavioral disturbance ICD Code: F02.81 Assessment & Plan Continue current treatment plan Justification for Cont. Inpt. Pt would decompensate in a less restrictive setting Request HC Surrog/Guard Advoc?: Yes Fabricio Roy DO May 03, 2017 13:22
[2017-05-03 18:00] VITALS: BP 141/67; PULSE 82; RESP 16; TEMP 98.6; O2SAT 97
[2017-05-03] MEDS: PANTOPRAZOLE SOD 40 MG DELAYED RELEASE TAB PO SCH (20:43)
[2017-05-03] MEDS: ATORVASTATIN 80 MG TAB PO SCH (20:43)
[2017-05-03] MEDS: INSULIN DETEMIR 100 UNITS/ML VIAL SQ SCH (20:44)
[2017-05-04 06:17] VITALS: BP 164/77; PULSE 72; RESP 15; O2SAT 98
[2017-05-04] MEDS: FERROUS SULFATE 325 MG (65 MG ELEMENTAL IRON) TAB PO SCH (08:30)
[2017-05-04] MEDS: LISINOPRIL 20 MG TAB PO SCH (08:31)
[2017-05-04] MEDS: NICOTINE 21 MG/24 HR PATCH T-DERMAL SCH (08:31)
[2017-05-04] MEDS: ISOSORBIDE MONONITRATE 20 MG TAB PO SCH (08:31)
[2017-05-04] MEDS: CHOLECALCIFEROL (VIT D3) 1000 UNIT TAB PO SCH (08:31)
[2017-05-04] MEDS: HALOPERIDOL LACTATE ORAL CONC 10 MG/5 ML CUP PO SCH ×2 (08:36→20:45)
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
[2017-05-04 14:17] VITALS: BP_SYST 123; BP_SYST 143; BP_DIAS 56; BP_DIAS 73; PULSE 88; O2SAT 98
--- NOTE | 2017-05-04 16:56 | HHI.PYPN ---
Subjective Remarks Patient seen in the day room with medical student Rodger, chart review, patient compliant medications. Patient calm cooperative and pleasant, continues pleasantly confused. Now continue treatment Review of Systems Except as stated in HPI: all other systems reviewed are Neg Objective Alert: Yes [place]: Person Mood: Calm Affect: Blunted Memory Intact: Comment (impaired) Hallucinations: Other (no AVH) Delusions: No Delusion Type: Other (none) Suicidal: Ideation (no SI) Homicidal: Ideation (no HI) Insight/Judgment Poor Vitals/IOs Vital Signs Date Time Temp Pulse Resp B/P Pulse Ox O2 Delivery O2 Flow Rate FiO2 05/04/17 14:17 88 143/73 98 05/04/17 06:17 15 05/03/17 18:00 98.6 Intake and Output 05/03/17 05/03/17 05/04/17 08:00 16:00 00:00 Intake Total 1200 ml 150 ml Output Total 1 ml Balance 1199 ml 150 ml Assessment & Plan Problem List: (1) Dementia associated with other underlying disease with behavioral disturbance ICD Code: F02.81 Assessment & Plan Estimated LOS: days patient continues confused disoriented and demented, compliant medications, no behavioral problems noted Justification for Cont. Inpt. At this time patient would decompensate the placed in a lower level of care Discharge Planning To be determined Request HC Surrog/Guard Advoc?: Yes Mayito Mendez MD May 04, 2017 16:56
[2017-05-04 18:00] VITALS: BP 172/89
[2017-05-04 19:00] VITALS: BP 188/94; PULSE 96; RESP 16; TEMP 98.2; O2SAT 97
[2017-05-04] MEDS: INSULIN DETEMIR 100 UNITS/ML VIAL SQ SCH (20:44)
[2017-05-04] MEDS: PANTOPRAZOLE SOD 40 MG DELAYED RELEASE TAB PO SCH (20:45)
[2017-05-04] MEDS: ATORVASTATIN 80 MG TAB PO SCH (20:45)
[2017-05-04] MEDS: cloNIDine HCL 0.1 MG TAB PO PRN (20:45)
[2017-05-04 22:03] VITALS: BP 128/66; PULSE 75
[2017-05-05 00:05] VITALS: BP 106/54; PULSE 71; RESP 18; TEMP 97.7; O2SAT 97
[2017-05-05 06:00] VITALS: BP 103/55; PULSE 63; RESP 17; TEMP 96.7
[2017-05-05] MEDS: HALOPERIDOL LACTATE ORAL CONC 10 MG/5 ML CUP PO SCH ×2 (08:29→20:43)
[2017-05-05] MEDS: ISOSORBIDE MONONITRATE 20 MG TAB PO SCH (08:29)
[2017-05-05] MEDS: CHOLECALCIFEROL (VIT D3) 1000 UNIT TAB PO SCH (08:29)
[2017-05-05] MEDS: FERROUS SULFATE 325 MG (65 MG ELEMENTAL IRON) TAB PO SCH (08:32)
[2017-05-05] MEDS: NICOTINE 21 MG/24 HR PATCH T-DERMAL SCH (08:32)
[2017-05-05] MEDS: LISINOPRIL 20 MG TAB PO SCH (08:32)
--- NOTE | 2017-05-05 14:55 | HHI.PYPN ---
Subjective Remarks Patient seen in day room with nurse Tremayne and medical student Rodger, chart reviewed. Patient calm cooperative pleasant remains pleasantly confused no behavioral issues continue to work on placement issues. For now continue treatment Review of Systems Except as stated in HPI: all other systems reviewed are Neg Objective Alert: Yes [place]: Person Mood: Calm Affect: Blunted Memory Intact: Comment (impaired) Hallucinations: Other (no AVH) Delusions: No Delusion Type: Other (none) Suicidal: Ideation (no SI) Homicidal: Ideation (no HI) Insight/Judgment Poor Vitals/IOs Vital Signs Date Time Temp Pulse Resp B/P Pulse Ox O2 Delivery O2 Flow Rate FiO2 05/05/17 06:00 96.7 63 17 103/55 05/05/17 00:05 97 Intake and Output 05/04/17 05/04/17 05/05/17 08:00 16:00 00:00 Intake Total 360 ml Balance 360 ml Assessment & Plan Problem List: (1) Dementia associated with other underlying disease with behavioral disturbance ICD Code: F02.81 Assessment & Plan Estimated LOS: days patient continues demented and confused with no behavioral problems, compliant medications. Continue to work on placement issues Justification for Cont. Inpt. At this time patient will decompensate placed in the lower level of care Discharge Planning To be determined Request HC Surrog/Guard Advoc?: Yes Mayito Mendez MD May 05, 2017 14:55
[2017-05-05 19:45] VITALS: BP 152/72; PULSE 92; RESP 18; TEMP 96.9
[2017-05-05] MEDS: PANTOPRAZOLE SOD 40 MG DELAYED RELEASE TAB PO SCH (20:44)
[2017-05-05] MEDS: ATORVASTATIN 80 MG TAB PO SCH (20:44)
[2017-05-05] MEDS: INSULIN DETEMIR 100 UNITS/ML VIAL SQ SCH (20:49)
[2017-05-05] MEDS: ACETAMINOPHEN 325 MG TAB PO PRN (21:33)
[2017-05-06 05:56] VITALS: BP 158/73; PULSE 78; RESP 18; TEMP 97.3
[2017-05-06] MEDS: NICOTINE 21 MG/24 HR PATCH T-DERMAL SCH (08:51)
[2017-05-06] MEDS: ISOSORBIDE MONONITRATE 20 MG TAB PO SCH (09:03)
[2017-05-06] MEDS: CHOLECALCIFEROL (VIT D3) 1000 UNIT TAB PO SCH (09:03)
[2017-05-06] MEDS: HALOPERIDOL LACTATE ORAL CONC 10 MG/5 ML CUP PO SCH ×2 (09:03→21:31)
[2017-05-06] MEDS: FERROUS SULFATE 325 MG (65 MG ELEMENTAL IRON) TAB PO SCH (09:03)
[2017-05-06] MEDS: LISINOPRIL 20 MG TAB PO SCH (09:04)
--- NOTE | 2017-05-06 16:19 | HHI.PYPN ---
Subjective Remarks Day room with nurse Sophie, chart reviewed, patient calm quiet cooperative, continues diffusely confused. It appears patient may have a placement tomorrow for now continue treatment Review of Systems Except as stated in HPI: all other systems reviewed are Neg Objective Alert: Yes [place]: Person Mood: Calm Affect: Blunted Memory Intact: Comment (impaired) Hallucinations: Other (no AVH) Delusions: No Delusion Type: Other (none) Suicidal: Ideation (no SI) Homicidal: Ideation (no HI) Insight/Judgment Very poor Vitals/IOs Vital Signs Date Time Temp Pulse Resp B/P Pulse Ox O2 Delivery O2 Flow Rate FiO2 05/06/17 05:56 97.3 78 18 158/73 05/05/17 00:05 97 Assessment & Plan Problem List: (1) Dementia associated with other underlying disease with behavioral disturbance ICD Code: F02.81 Assessment & Plan Estimated LOS: days patient continues demented and confused, though no behavioral problems. For now continue treatment Justification for Cont. Inpt. At this time patient will decompensate placed in a lower level of care Discharge Planning To be determined Request HC Surrog/Guard Advoc?: Yes Mayito Mendez MD May 06, 2017 16:19
[2017-05-06 18:00] VITALS: BP 149/71; PULSE 88; RESP 16; TEMP 97.5
[2017-05-06] MEDS: ATORVASTATIN 80 MG TAB PO SCH (21:31)
[2017-05-06] MEDS: PANTOPRAZOLE SOD 40 MG DELAYED RELEASE TAB PO SCH (21:31)
[2017-05-06] MEDS: INSULIN DETEMIR 100 UNITS/ML VIAL SQ SCH (21:32)
[2017-05-07 05:11] VITALS: BP 153/74; PULSE 85; RESP 16; TEMP 97.6
[2017-05-07] MEDS: NICOTINE 21 MG/24 HR PATCH T-DERMAL SCH (09:00)
[2017-05-07] MEDS: HALOPERIDOL LACTATE ORAL CONC 10 MG/5 ML CUP PO SCH ×2 (09:55→20:36)
[2017-05-07] MEDS: CHOLECALCIFEROL (VIT D3) 1000 UNIT TAB PO SCH (09:55)
[2017-05-07] MEDS: FERROUS SULFATE 325 MG (65 MG ELEMENTAL IRON) TAB PO SCH (09:55)
[2017-05-07] MEDS: LISINOPRIL 20 MG TAB PO SCH (09:55)
[2017-05-07] MEDS: ISOSORBIDE MONONITRATE 20 MG TAB PO SCH (09:55)
--- NOTE | 2017-05-07 11:04 | HHI.PYPN ---
Subjective Remarks Patient seen in day room with nurse Linda and medical student Rodger, chart review, patient compliant medication. Patient continues confused disoriented though no significant behavioral problems. Placement remains somewhat problematic for now continue treatment Review of Systems Except as stated in HPI: all other systems reviewed are Neg Objective Alert: Yes [place]: Person Mood: Calm Affect: Blunted Memory Intact: Comment (impaired) Hallucinations: Other (no AVH) Delusions: No Delusion Type: Other (none) Suicidal: Ideation (no SI) Homicidal: Ideation (no HI) Insight/Judgment Very poor Vitals/IOs Vital Signs Date Time Temp Pulse Resp B/P Pulse Ox O2 Delivery O2 Flow Rate FiO2 05/07/17 05:11 97.6 85 16 153/74 05/05/17 00:05 97 Intake and Output 05/06/17 05/06/17 05/07/17 08:00 16:00 00:00 Intake Total 960 ml 840 ml Balance 960 ml 840 ml Assessment & Plan Problem List: (1) Dementia associated with other underlying disease with behavioral disturbance ICD Code: F02.81 Assessment & Plan Estimated LOS: days patient continues demented confused but no behavioral problems. Compliant medication. Justification for Cont. Inpt. At this time patient will decompensate the place to the lower level of care Discharge Planning To be determined Request HC Surrog/Guard Advoc?: Yes Mayito Mendez MD May 07, 2017 11:04
[2017-05-07 18:00] VITALS: BP 152/74; PULSE 86; RESP 16; TEMP 97.7; O2SAT 98
[2017-05-07] MEDS: DOCUSATE SODIUM 50 MG/SENNA 8.6 MG TAB PO PRN (20:35)
[2017-05-07] MEDS: ACETAMINOPHEN 325 MG TAB PO PRN (20:35)
[2017-05-07] MEDS: ATORVASTATIN 80 MG TAB PO SCH (20:35)
[2017-05-07] MEDS: PANTOPRAZOLE SOD 40 MG DELAYED RELEASE TAB PO SCH (20:35)
[2017-05-07] MEDS: INSULIN DETEMIR 100 UNITS/ML VIAL SQ SCH (20:36)
[2017-05-08 06:20] VITALS: BP 153/81; PULSE 71; RESP 15; TEMP 97.1; O2SAT 100
[2017-05-08] MEDS: LISINOPRIL 20 MG TAB PO SCH (09:05)
[2017-05-08] MEDS: FERROUS SULFATE 325 MG (65 MG ELEMENTAL IRON) TAB PO SCH (09:05)
[2017-05-08] MEDS: CHOLECALCIFEROL (VIT D3) 1000 UNIT TAB PO SCH (09:05)
[2017-05-08] MEDS: ISOSORBIDE MONONITRATE 20 MG TAB PO SCH (09:05)
[2017-05-08] MEDS: HALOPERIDOL LACTATE ORAL CONC 10 MG/5 ML CUP PO SCH ×2 (09:05→21:54)
[2017-05-08] MEDS: NICOTINE 21 MG/24 HR PATCH T-DERMAL SCH (09:06)
--- NOTE | 2017-05-08 10:51 | HHI.PYPN ---
Subjective Remarks Patient seen in the day room with nurse Devon and medical student Rodger, chart reviewed. Patient continues calm diffusely confused disoriented thesignificant behavioral problems. Compliant medications. For now continue treatment Review of Systems Except as stated in HPI: all other systems reviewed are Neg Objective Alert: Yes [place]: Person Mood: Calm Affect: Blunted Memory Intact: Comment (impaired) Hallucinations: Other (no AVH) Delusions: No Delusion Type: Other (none) Suicidal: Ideation (no SI) Homicidal: Ideation (no HI) Insight/Judgment Very poor Vitals/IOs Vital Signs Date Time Temp Pulse Resp B/P Pulse Ox O2 Delivery O2 Flow Rate FiO2 05/08/17 06:20 97.1 71 15 153/81 100 Intake and Output 05/07/17 05/07/17 05/08/17 08:00 16:00 00:00 Intake Total 600 ml 240 ml Balance 600 ml 240 ml Assessment & Plan Problem List: (1) Dementia associated with other underlying disease with behavioral disturbance ICD Code: F02.81 Assessment & Plan Estimated LOS: days patient is demented confused though no significant behavioral problems, compliant medication Justification for Cont. Inpt. At this time patient will decompensate if place to the lower level of care Discharge Planning To be determined Request HC Surrog/Guard Advoc?: Yes Mayito Mendez MD May 08, 2017 10:51
[2017-05-08 17:07] VITALS: BP 98/66; PULSE 97; RESP 18; TEMP 97.2; O2SAT 96
[2017-05-08] MEDS: INSULIN DETEMIR 100 UNITS/ML VIAL SQ SCH (21:00)
[2017-05-08] MEDS: ATORVASTATIN 80 MG TAB PO SCH (21:54)
[2017-05-08] MEDS: PANTOPRAZOLE SOD 40 MG DELAYED RELEASE TAB PO SCH (21:54)
[2017-05-09 06:00] VITALS: BP 170/87; PULSE 82; RESP 15; TEMP 98.5; O2SAT 94
[2017-05-09] MEDS: NICOTINE 21 MG/24 HR PATCH T-DERMAL SCH (09:00)
[2017-05-09] MEDS: LISINOPRIL 20 MG TAB PO SCH (09:55)
[2017-05-09] MEDS: FERROUS SULFATE 325 MG (65 MG ELEMENTAL IRON) TAB PO SCH (09:55)
[2017-05-09] MEDS: ISOSORBIDE MONONITRATE 20 MG TAB PO SCH (09:56)
[2017-05-09] MEDS: HALOPERIDOL LACTATE ORAL CONC 10 MG/5 ML CUP PO SCH ×2 (09:57→21:15)
[2017-05-09] MEDS: CHOLECALCIFEROL (VIT D3) 1000 UNIT TAB PO SCH (09:58)
--- NOTE | 2017-05-09 12:59 | HHI.PYPN ---
Subjective Remarks Pt seen and discussed with staff. AIMS=0. No aggression or agitation today. Cooperative with care. Minimal interaction with staff and peers due to cognitive impairment.No SI/HI. Compliant with meds. She states that mood is happy. Objective Alert: Yes [place]: Person Mood: Calm Affect: Restricted Memory Intact: Comment (impaired) Hallucinations: Other (no AVH) Delusions: No Delusion Type: Other (none) Suicidal: Ideation (no SI) Homicidal: Ideation (no HI) Insight/Judgment poor Vitals/IOs Vital Signs Date Time Temp Pulse Resp B/P Pulse Ox O2 Delivery O2 Flow Rate FiO2 05/09/17 06:00 98.5 82 15 170/87 94 Intake and Output 05/08/17 05/08/17 05/09/17 08:00 16:00 00:00 Intake Total 240 ml 1600 ml Balance 240 ml 1600 ml Assessment & Plan Problem List: (1) Dementia associated with other underlying disease with behavioral disturbance ICD Code: F02.81 Assessment & Plan Continue current tx plan. Estimated LOS: days Justification for Cont. Inpt. risk of decompensation Request HC Surrog/Guard Advoc?: Yes Brigida Conn MD May 09, 2017 12:59
[2017-05-09] MEDS: ACETAMINOPHEN 325 MG TAB PO PRN (13:19)
[2017-05-09 18:00] VITALS: BP 98/64; PULSE 81; TEMP 98.5; O2SAT 97
[2017-05-09] MEDS: ATORVASTATIN 80 MG TAB PO SCH (21:15)
[2017-05-09] MEDS: PANTOPRAZOLE SOD 40 MG DELAYED RELEASE TAB PO SCH (21:16)
[2017-05-09] MEDS: INSULIN DETEMIR 100 UNITS/ML VIAL SQ SCH (21:40)
[2017-05-10 05:39] VITALS: BP 150/72; PULSE 88; RESP 18; TEMP 98.5
[2017-05-10] MEDS: NICOTINE 21 MG/24 HR PATCH T-DERMAL SCH (09:00)
[2017-05-10] MEDS: CHOLECALCIFEROL (VIT D3) 1000 UNIT TAB PO SCH (10:18)
[2017-05-10] MEDS: HALOPERIDOL LACTATE ORAL CONC 10 MG/5 ML CUP PO SCH ×2 (10:18→21:25)
[2017-05-10] MEDS: FERROUS SULFATE 325 MG (65 MG ELEMENTAL IRON) TAB PO SCH (10:18)
[2017-05-10] MEDS: ISOSORBIDE MONONITRATE 20 MG TAB PO SCH (10:18)
[2017-05-10] MEDS: LISINOPRIL 20 MG TAB PO SCH (10:19)
--- NOTE | 2017-05-10 11:35 | HHI.PYPN ---
Subjective Remarks Pt seen and discussed with staff. She has now decided that she wants to be called Fern which is her middle name. No agitation or aggression. No SI/HI Compliant with care and medications. No side effects. denies pain or discomfort Objective Alert: Yes [place]: Person Mood: Calm Affect: Restricted Memory Intact: Comment (impaired) Hallucinations: Other (no AVH) Delusions: No Delusion Type: Other (none) Suicidal: Ideation (no SI) Homicidal: Ideation (no HI) Insight/Judgment poor Vitals/IOs Vital Signs Date Time Temp Pulse Resp B/P Pulse Ox O2 Delivery O2 Flow Rate FiO2 05/10/17 05:39 98.5 88 18 150/72 05/09/17 18:00 97 Intake and Output 05/09/17 05/09/17 05/10/17 08:00 16:00 00:00 Intake Total 120 ml 240 ml 360 ml Balance 120 ml 240 ml 360 ml Assessment & Plan Problem List: (1) Dementia associated with other underlying disease with behavioral disturbance ICD Code: F02.81 Assessment & Plan continue current tx plan. Estimated LOS: days Justification for Cont. Inpt. risk of decompensation Request HC Surrog/Guard Advoc?: Yes Brigida Conn MD May 10, 2017 11:35
[2017-05-10] MEDS: ATORVASTATIN 80 MG TAB PO SCH (21:24)
[2017-05-10] MEDS: PANTOPRAZOLE SOD 40 MG DELAYED RELEASE TAB PO SCH (21:24)
[2017-05-10] MEDS: INSULIN DETEMIR 100 UNITS/ML VIAL SQ SCH (21:27)
[2017-05-10] MEDS: traZODone HCL 50 MG TAB PO PRN (22:50)
[2017-05-11] MEDS: LORazepam 0.5 MG TAB PO PRN (02:32)
[2017-05-11 05:32] VITALS: BP 118/76; PULSE 58; RESP 18; TEMP 97.8; O2SAT 99
[2017-05-11] MEDS: NICOTINE 21 MG/24 HR PATCH T-DERMAL SCH (09:00)
[2017-05-11] MEDS: ISOSORBIDE MONONITRATE 20 MG TAB PO SCH (09:23)
[2017-05-11] MEDS: CHOLECALCIFEROL (VIT D3) 1000 UNIT TAB PO SCH (09:24)
[2017-05-11] MEDS: LISINOPRIL 20 MG TAB PO SCH (09:24)
[2017-05-11] MEDS: HALOPERIDOL LACTATE ORAL CONC 10 MG/5 ML CUP PO SCH ×2 (09:24→21:35)
[2017-05-11] MEDS: FERROUS SULFATE 325 MG (65 MG ELEMENTAL IRON) TAB PO SCH (09:24)
--- NOTE | 2017-05-11 11:28 | HHI.PYPN ---
Subjective Remarks Patient discussed with treatment team, patient seen on unit. Chart reviewed. Patient compliant medications. Patient continues no behavioral problems, continues confused started but overall pleasant. There appears to be a potential placement however there may be some resistance from family. The family does not seem to want to cooperate with this placement which is an appropriate placement, perhaps suggest discharge on Sunday 05/13 either to the placement for to the family Review of Systems Except as stated in HPI: all other systems reviewed are Neg Objective Alert: Yes [place]: Person Mood: Calm Affect: Restricted Memory Intact: Comment (impaired) Hallucinations: Other (no AVH) Delusions: No Delusion Type: Other (none) Suicidal: Ideation (no SI) Homicidal: Ideation (no HI) Insight/Judgment Poor Vitals/IOs Vital Signs Date Time Temp Pulse Resp B/P Pulse Ox O2 Delivery O2 Flow Rate FiO2 05/11/17 05:32 97.8 58 18 118/76 99 Intake and Output 05/10/17 05/10/17 05/11/17 08:00 16:00 00:00 Intake Total 600 ml 240 ml Balance 600 ml 240 ml Assessment & Plan Problem List: (1) Dementia associated with other underlying disease with behavioral disturbance ICD Code: F02.81 Assessment & Plan Estimated LOS: days patient remains confused disoriented demented, but no behavior problems. Consider discharge by 05/13 Justification for Cont. Inpt. At this time patient decompensate in place to the lower level of care Discharge Planning To be determined Request HC Surrog/Guard Advoc?: Yes Mayito Mendez MD May 11, 2017 11:28
--- NOTE | 2017-05-11 11:57 | PD.TTN ---
Present for Treatment Team Treatment Team Staff: Provider (Dr. Mendez), Psych Therapist (Samantha Soliz), Occupational Therapist (Jamir) Patient Problems 1. Discharge planning 2. Medication compliance 3. Knowledge deficit 4. Lack of coping skills Progress Toward Goals Provider Input: Dr. Mendez reported the patient's mental status remains unchanged. Patient remains medication compliant and in good behavioral control. Psych Therapist Input: Counselor reported the patient has been accepted by [facility] and that patient's daughter is holding up the discharge by not signing admission papers and not returning phone calls from the facility or this counselor. Patient is coping appropriately and appears to have some insight into her mental illness. Occupational Therapist Input: Jamir reported the patient is not participating in therapeutic groups ir activities. Documentation Scribe: JOHANNA Ramos Date Resolved: May 11, 2017 Samantha Soliz May 11, 2017 11:57
[2017-05-11 18:00] VITALS: BP 119/57; PULSE 88; RESP 16; TEMP 98.3; O2SAT 98
[2017-05-11] MEDS: PANTOPRAZOLE SOD 40 MG DELAYED RELEASE TAB PO SCH (21:33)
[2017-05-11] MEDS: ATORVASTATIN 80 MG TAB PO SCH (21:33)
[2017-05-11] MEDS: INSULIN DETEMIR 100 UNITS/ML VIAL SQ SCH (21:35)
[2017-05-12 01:00] VITALS: BP 131/77; PULSE 73; RESP 16; TEMP 98.5; O2SAT 97
[2017-05-12 06:00] VITALS: BP 115/53; PULSE 74; RESP 18; O2SAT 99
[2017-05-12] MEDS: ISOSORBIDE MONONITRATE 20 MG TAB PO SCH (09:00)
[2017-05-12] MEDS: NICOTINE 21 MG/24 HR PATCH T-DERMAL SCH (09:00)
[2017-05-12] MEDS: HALOPERIDOL LACTATE ORAL CONC 10 MG/5 ML CUP PO SCH (09:00)
[2017-05-12] MEDS: FERROUS SULFATE 325 MG (65 MG ELEMENTAL IRON) TAB PO SCH (09:01)
[2017-05-12] MEDS: CHOLECALCIFEROL (VIT D3) 1000 UNIT TAB PO SCH (09:01)
[2017-05-12] MEDS: LISINOPRIL 20 MG TAB PO SCH (09:02)
[2017-05-12] MEDS ORDERED: FERR325T20 PO (12:25)
[2017-05-12] MEDS ORDERED: VITA1000 PO (12:25)
[2017-05-12] MEDS ORDERED: ISOS20TA PO (12:25)
[2017-05-12] MEDS ORDERED: ATOR1TAB18 PO (12:25)
[2017-05-12] MEDS ORDERED: HALO2S PO (12:25)
[2017-05-12] MEDS ORDERED: LISI-515 PO (12:25)
[2017-05-12] MEDS ORDERED: LEVEMIR SQ (12:25)
[2017-05-12] MEDS ORDERED: PANT40TA3 PO (12:25)
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
== END 2017-05-12 14:55 | DRG 884 ==
LOC: NEPC 21:00 → NEDA 03-25 17:05 → H250 03-25 20:40
PROVIDERS: ADMIT Psychiatry & Neurology Psychiatry; ATTEND Psychiatry & Neurology Psychiatry
DX: F03.91 Unspecified dementia, unspecified severity, with behavioral disturbance (principal); N17.9 Acute kidney failure, unspecified; J44.9 Chronic obstructive pulmonary disease, unspecified; E11.9 Type 2 diabetes mellitus without complications; Z78.1 Physical restraint status; I10 Essential (primary) hypertension; G89.29 Other chronic pain; M54.9 Dorsalgia, unspecified; M19.90 Unspecified osteoarthritis, unspecified site; N81.10 Cystocele, unspecified; E78.5 Hyperlipidemia, unspecified; F32.9 Major depressive disorder, single episode, unspecified; Z79.4 Long term (current) use of insulin; F22 Delusional disorders
CPT/HCPCS: 70450; 71010; 73060; 73502; 76856; 80048; 80053; 80061; 80307; 81001; 82306; 82652; 82728; 82948; 83036; 83540; 83550; 84443; 85025; J1200; J1815; J2060; J3486